=== PATIENT | male | born 1960 | race Caucasian/White ===

== ENCOUNTER → 2017-08-31 | Outpatient (CLI) | payer OTHER ==
--- NOTE | 2017-09-01 10:06 | MRI ---
STUDY: MRI OF THE LUMBAR SPINE HISTORY: Chronic low back pain. Comparison: None. Technique: Multiplanar multi-sequence MRI of the lumbar spine was performed. Sagittal T1, sagittal T 2, and STIR images, axial T1, and axial T2 images were obtained. Findings: Sagittal images: Vertebral body heights and alignment are within normal limits. There has been a discectomy with place ment of interbody cage at L4/5. Marrow signal is heterogeneous. There is multilevel degenerative disc disease and degenerative endplate change. Degenerative endplate change appears mostly chronic, altho ugh there may be some subtle mixed degenerative change at L2 and L3. The conus medullaris is normal in appearance terminating at the level of L1. Axial images: T12 -- L1: There is mild bilateral facet arthropathy and ligamentum flavum infolding. The central can al and neural foramina are adequate. L1 -- L2: There is a broad-based disc bulge, bilateral facet arthropathy and ligamentum flavum infold ing. This results in mild central canal stenosis. The neural foramina are adequate. L2 -- L3: There is a broad-based disc bulge, bilateral facet arthropathy and ligamentum flavum infold ing. This results in mild central canal stenosis. There is mild right neural foraminal stenosis. The left neural foramen is adequate. L3 -- L4: There is a broad-based disc bulge, bilateral facet arthropathy, and ligamentum flavum infol ding. This results in mild central canal stenosis. There is mild bilateral neural foraminal stenosis. L4 -- L5: There has been a discectomy with placement of interbody cage at this level. There is bilate ral facet arthropathy. The central canal is adequate. There is mild bilateral neural foraminal stenos is. L5 -- S1: There is a broad-based disc bulge with focal central disc herniation. There is bilateral fa cet arthropathy and ligamentum flavum infolding. The central canal is adequate. The herniated disc pr ojects medial to the traversing left S1 nerve root. There is severe right and moderate left neural f oraminal stenosis at this level. Note is made of a small surgical defect in the posterior lamina of S 1 on the right. IMPRESSION: 1. Multilevel lumbar spondylosis. Postsurgical changes at L4/5 and both S1. 2. Mild spinal stenosis at L1/2, L2/3, and L3/4. 3. Multilevel neural foraminal stenosis, most severe at L5/S1 on the right. Reported By:
== END ==
LOC: RAD 15:23
PROVIDERS: ATTEND Internal Medicine
DX: M54.5 Low back pain (principal); M54.16 Radiculopathy, lumbar region
CPT/HCPCS: 72148

== ENCOUNTER 2017-10-29 10:46 | Inpatient (IN) | payer OTHER ==
[2017-10-29] MEDS ORDERED: DUONEB 0.5 MG/3 MG ONE (11:30)
[2017-10-29 11:41] LABS: ABG BASE EXCESS 7.5 mmol/L (-2.0-2.0)
[2017-10-29 11:42] LABS: ABG HCO3 33.6 mmol/L (22-26)
[2017-10-29 11:43] LABS: ABG ALLEN TEST POS
[2017-10-29 12:28] VITALS: BMI 26.6
[2017-10-29 12:28] LABS: BASOPHILS # (AUTO) 0.1 X10^3/uL (0.0-0.1); BASOPHILS % (AUTO) 0.5 % (0.2-1.0); EOSINOPHILS # (AUTO) 0.1 x10^3/uL (0.0-0.2); EOSINOPHILS % (AUTO) 0.5 % (0.9-2.9); HEMATOCRIT 44.1 % (42.0-54.0); HEMOGLOBIN 15.5 g/dL (13.5-18.0); LYMPHOCYTES # (AUTO) 0.5 X10^3/uL (1.3-2.9); LYMPHOCYTES % (AUTO) 4.5 % (21.0-51.0); MEAN CORPUSCULAR HEMOGLOBIN 30.4 pg (27.0-34.0); MEAN CORPUSCULAR HGB CONC 35.2 g/dL (33.0-35.0); MEAN CORPUSCULAR VOLUME 86.4 fL (80.0-100.0); MEAN PLATELET VOLUME 8.3 fL (7.4-11.0); MONOCYTES # (AUTO) 0.7 x10^3/uL (0.3-0.8); MONOCYTES % (AUTO) 5.7 % (0.0-13.0); NEUTROPHILS # (AUTO) 10.9 x10^3/uL (2.2-4.8); NEUTROPHILS % (AUTO) 88.8 % (42.0-75.0); PLATELET COUNT 232 X10^3/uL (150.0-450.0); RED CELL DISTRIBUTION WIDTH 12.6 % (11.6-16.5); WHITE BLOOD COUNT 12.2 X10^3/uL (3.6-10.0)
[2017-10-29 12:38] LABS: ALANINE AMINOTRANSFERASE 16 Units/L (12-78); ALBUMIN 3.3 g/dL (3.4-5.0); ALKALINE PHOSPHATASE 81 Units/L (46-116); ASPARTATE AMINO TRANSFERASE 15 Units/L (15-37); BLOOD UREA NITROGEN 7 mg/dL (7-18); CHLORIDE 90 mmol/L (98-107); COR CA(FOR HYPOALB) 8.6 mg/dL (8.5-10.1); COR NA(FOR HYPERGLY) 129 mmol/L (136-145); CREATININE 0.69 mg/dL (0.70-1.30); SODIUM 128 mmol/L (136-145); TOTAL PROTEIN 7.8 g/dL (6.4-8.2); eGFR BLACK RACES > 60 (>60); eGFR NON BLACK RACES > 60 (>60)
[2017-10-29 12:51] LABS: CKMB % 1.2 % (<4); CREATINE KINASE 229 Units/L (39-308); CREATINE KINASE MB 2.8 ng/mL (0-4.0); TROPONIN I < 0.02 ng/mL (0-1.5)
[2017-10-29 12:57] LABS: BAND NEUTROPHILS % 14 % (0-10); PLATELET MORPHOLOGY COMMENT NORMAL (NORMAL)
[2017-10-29] MEDS ORDERED: NS 1/2 1000 ML IV 1,000 ML IV ONE (14:02)
[2017-10-29] MEDS: LEVAQUIN PREMIX IV 750 MG 750 MG/150 ML BAG IV SCH (14:11)
[2017-10-29] MEDS: NS 1/2 1000 ML IV 1,000 ML IV SCH (14:11)
[2017-10-29] MEDS: ROBITUSSIN DM PO SCH ×3 (14:11→21:26)
--- NOTE | 2017-10-29 15:35 | CT ---
CT CHEST WITH IV CONTRAST HISTORY: Shortness of breath Comparison: None Technique: Multiple axial images of the chest were obtained from the thoracic inlet to the upper abdo men after the administration of IV contrast.Dose reduction techniques including Automated Exposure Co ntrol (AEC) and adjustment of mA and kV were utlized. Findings: The heart is normal in size. No pericardial effusion. No suspicious mediastinal or axillary lymph no frances. Although not optimized to detect pulmonary embolism, no large central pulmonary emboli are seen. No focal consolidations, pleural effusions or pneumothorax. Moderate emphysema Airways are patent. 1. 4 cm left upper lobe nodule on series 4, image 31. Limited images of the upper abdomen are unremarkable. No aggressive osseous lesions. IMPRESSION: 1. 1.4 cm left upper lobe pulmonary nodule. Recommend correlation with prior exams if available to c onfirm stability. Otherwise, consider CT at 3 months, PET or tissue sampling. It should be noted max t adenocarcinoma of the lung is often PET-negative. [email or web address]://pubs.[email or web address]/doi/[email or web address] Reported By:
--- NOTE | 2017-10-29 15:57 | RAD ---
HISTORY: Shortness of breath. Hypoxia. Study: PA and lateral chest Comparison: None Findings: Mild hyperinflation and minimal chronic interstitial scarring is noted. There is a low-density nodul e present in the left mid lung measuring approximately 18 mm in maximum dimension. This corresponds to the abnormality seen on the CT scan from the same day. Follow-up is recommended. Otherwise the l ungs are clear. The heart size is normal. Prior cervical spine surgery been performed. Mild thorac ic spondylosis is noted. IMPRESSION: 1. Findings suggesting chronic obstructive pulmonary disease. 2. Low-density nodule in the left upper lobe. I cannot exclude the possibility of an underlying mal ignancy. 3. Please see CT scan of the chest report from the same day. Reported By:
[2017-10-29 16:06] LABS: BILIRUBIN,URINE NEGATIVE (NEGATIVE); BLOOD/HEMOGLOBIN,URINE 1+ (NEGATIVE); GLUCOSE, URINE NEGATIVE (NEGATIVE); KETONES,URINE NEGATIVE (NEGATIVE); LEUKOCYTE ESTERASE ,URINE NEGATIVE (NEGATIVE); NITRITES,URINE NEGATIVE (NEGATIVE); PROTEIN,URINE NEGATIVE (NEGATIVE); UROBILINOGEN,URINE NORMAL (NORMAL)
[2017-10-29 16:07] LABS: APPEARANCE,URINE CLEAR (CLEAR); COLOR,URINE YELLOW (YELLOW)
[2017-10-29 16:29] LABS: RBC,URINE 0-2 /HPF (NONE SEEN)
[2017-10-29 16:30] LABS: BACTERIA,URINE NEGATIVE /HPF (NEGATIVE); SQUAMOUS EPITHELIAL CELL,UR NEGATIVE /HPF (NEGATIVE)
[2017-10-29] MEDS: DUONEB 0.5 MG/3 MG NEB SCH (16:46)
[2017-10-29 17:18] LABS: CKMB % 1.2 % (<4); CREATINE KINASE 342 Units/L (39-308); TROPONIN I < 0.02 ng/mL (0-1.5)
[2017-10-29 17:36] LABS: CREATINE KINASE MB 4.2 ng/mL (0-4.0)
[2017-10-29 21:10] LABS: CKMB % 1.5 % (<4); CREATINE KINASE 352 Units/L (39-308); TROPONIN I < 0.02 ng/mL (0-1.5)
[2017-10-29 21:11] LABS: CREATINE KINASE MB 5.1 ng/mL (0-4.0)
[2017-10-29] MEDS: TUSSIONEX PENNKINETIC SUSP PO PRN (21:26)
[2017-10-30] MEDS: DUONEB 0.5 MG/3 MG NEB SCH ×6 (00:35→20:30)
[2017-10-30 01:16] LABS: CKMB % 1.4 % (<4); CREATINE KINASE 377 Units/L (39-308); TROPONIN I < 0.02 ng/mL (0-1.5)
[2017-10-30 01:19] LABS: CREATINE KINASE MB 5.3 ng/mL (0-4.0)
[2017-10-30] MEDS ORDERED: NS 1/2 1000 ML IV 1,000 ML IV ONE ×2 (04:24→19:40)
[2017-10-30] MEDS: NS 1/2 1000 ML IV 1,000 ML IV SCH ×3 (04:26→20:13)
[2017-10-30 05:17] LABS: ALANINE AMINOTRANSFERASE 17 Units/L (12-78); ALBUMIN 2.9 g/dL (3.4-5.0); ALKALINE PHOSPHATASE 75 Units/L (46-116); ASPARTATE AMINO TRANSFERASE 15 Units/L (15-37); BLOOD UREA NITROGEN 5 mg/dL (7-18); CALCIUM 8.2 mg/dL (8.5-10.1); CHLORIDE 93 mmol/L (98-107); CKMB % 1.4 % (<4); COR CA(FOR HYPOALB) 9.1 mg/dL (8.5-10.1); COR NA(FOR HYPERGLY) 133 mmol/L (136-145); CREATINE KINASE 350 Units/L (39-308); CREATININE 0.61 mg/dL (0.70-1.30); SODIUM 131 mmol/L (136-145); TOTAL PROTEIN 7.4 g/dL (6.4-8.2); TROPONIN I < 0.02 ng/mL (0-1.5); eGFR BLACK RACES > 60 (>60); eGFR NON BLACK RACES > 60 (>60)
[2017-10-30 05:26] LABS: BASOPHILS % (AUTO) 0.2 % (0.2-1.0); HEMATOCRIT 41.8 % (42.0-54.0); HEMOGLOBIN 14.8 g/dL (13.5-18.0); LYMPHOCYTES # (AUTO) 0.5 X10^3/uL (1.3-2.9); LYMPHOCYTES % (AUTO) 4.7 % (21.0-51.0); MEAN CORPUSCULAR HEMOGLOBIN 30.5 pg (27.0-34.0); MEAN CORPUSCULAR HGB CONC 35.5 g/dL (33.0-35.0); MEAN CORPUSCULAR VOLUME 85.9 fL (80.0-100.0); MEAN PLATELET VOLUME 8.4 fL (7.4-11.0); MONOCYTES # (AUTO) 0.7 x10^3/uL (0.3-0.8); MONOCYTES % (AUTO) 6.1 % (0.0-13.0); NEUTROPHILS # (AUTO) 9.7 x10^3/uL (2.2-4.8); PLATELET COUNT 234 X10^3/uL (150.0-450.0); RED BLOOD COUNT 4.86 X10^6/uL (4.7-6.0); RED CELL DISTRIBUTION WIDTH 12.5 % (11.6-16.5); WHITE BLOOD COUNT 10.9 X10^3/uL (3.6-10.0)
[2017-10-30 05:29] LABS: CREATINE KINASE MB 4.9 ng/mL (0-4.0)
[2017-10-30 06:09] LABS: ABG BASE EXCESS 9.5 mmol/L (-2.0-2.0)
[2017-10-30 06:10] LABS: ABG HCO3 34.8 mmol/L (22-26)
[2017-10-30 08:36] LABS: CKMB % 1.3 % (<4); CREATINE KINASE 353 Units/L (39-308); TROPONIN I < 0.02 ng/mL (0-1.5)
[2017-10-30 08:42] LABS: CREATINE KINASE MB 4.7 ng/mL (0-4.0)
[2017-10-30] MEDS: PULMICORT NEB TX 0.5 MG NEB SCH ×2 (08:45→20:31)
[2017-10-30] MEDS: ROBITUSSIN DM PO SCH ×4 (10:46→22:37)
[2017-10-30] MEDS: SOLU-Medrol 40 MG VIAL IVP SCH ×3 (10:46→22:39)
[2017-10-30] MEDS: LEVAQUIN PREMIX IV 750 MG 750 MG/150 ML BAG IV SCH (10:46)
[2017-10-30] MEDS: NORVASC TAB 5 MG PO SCH (10:47)
[2017-10-30] MEDS: LIPITOR TAB 40 MG PO SCH (10:47)
[2017-10-30] MEDS: THEO-DUR TAB 200 MG PO SCH ×2 (10:47→22:38)
[2017-10-30] MEDS: NICOTINE PATCH TD SCH (10:51)
[2017-10-30] MEDS: PATIENT'S HOME MEDICATION PO SCH (10:53)
[2017-10-30] MEDS: FOSINOPRIL SODIUM 20 MG PO SCH (10:55)
[2017-10-30 12:40] LABS: CKMB % 1.4 % (<4); CREATINE KINASE 345 Units/L (39-308); TROPONIN I < 0.02 ng/mL (0-1.5)
[2017-10-30 12:49] LABS: CREATINE KINASE MB 4.7 ng/mL (0-4.0)
[2017-10-30 15:54] LABS: ABG BASE EXCESS 10.8 mmol/L (-2.0-2.0)
[2017-10-30 15:55] LABS: ABG ALLEN TEST POS; ABG HCO3 36.3 mmol/L (22-26)
[2017-10-30] MEDS: LOVENOX INJ 30 MG SYR SC SCH (16:19)
[2017-10-30] MEDS: FOSINOPRIL SODIUM 10 MG PO SCH (22:44)
[2017-10-31] MEDS: DUONEB 0.5 MG/3 MG NEB SCH ×6 (00:35→20:38)
[2017-10-31] MEDS: SOLU-Medrol 40 MG VIAL IVP SCH ×3 (06:04→21:46)
[2017-10-31 06:33] LABS: BASOPHILS % (AUTO) 0.1 % (0.2-1.0); HEMATOCRIT 42.5 % (42.0-54.0); HEMOGLOBIN 14.7 g/dL (13.5-18.0); LYMPHOCYTES # (AUTO) 0.6 X10^3/uL (1.3-2.9); LYMPHOCYTES % (AUTO) 4.6 % (21.0-51.0); MEAN CORPUSCULAR HEMOGLOBIN 29.9 pg (27.0-34.0); MEAN CORPUSCULAR HGB CONC 34.7 g/dL (33.0-35.0); MEAN CORPUSCULAR VOLUME 86.3 fL (80.0-100.0); MEAN PLATELET VOLUME 8.2 fL (7.4-11.0); MONOCYTES # (AUTO) 0.8 x10^3/uL (0.3-0.8); MONOCYTES % (AUTO) 6.3 % (0.0-13.0); NEUTROPHILS # (AUTO) 11.7 x10^3/uL (2.2-4.8); PLATELET COUNT 256 X10^3/uL (150.0-450.0); RED BLOOD COUNT 4.92 X10^6/uL (4.7-6.0); RED CELL DISTRIBUTION WIDTH 12.4 % (11.6-16.5); WHITE BLOOD COUNT 13.2 X10^3/uL (3.6-10.0)
[2017-10-31 06:48] LABS: BLOOD UREA NITROGEN 8 mg/dL (7-18); CARBON DIOXIDE 33.4 mmol/L (21-32); CHLORIDE 95 mmol/L (98-107); COR NA(FOR HYPERGLY) 137 mmol/L (136-145); CREATININE 0.64 mg/dL (0.70-1.30); SODIUM 136 mmol/L (136-145); eGFR BLACK RACES > 60 (>60); eGFR NON BLACK RACES > 60 (>60)
[2017-10-31 06:49] LABS: ALANINE AMINOTRANSFERASE 23 Units/L (12-78); ALBUMIN 2.8 g/dL (3.4-5.0); ALKALINE PHOSPHATASE 74 Units/L (46-116); ASPARTATE AMINO TRANSFERASE 18 Units/L (15-37); TOTAL PROTEIN 6.8 g/dL (6.4-8.2)
[2017-10-31] MEDS: PULMICORT NEB TX 0.5 MG NEB SCH ×2 (09:08→20:38)
[2017-10-31] MEDS ORDERED: NS 1/2 1000 ML IV 1,000 ML IV ONE (09:15)
[2017-10-31] MEDS: NS 1/2 1000 ML IV 1,000 ML IV SCH (09:35)
[2017-10-31] MEDS: LEVAQUIN PREMIX IV 750 MG 750 MG/150 ML BAG IV SCH (09:36)
[2017-10-31] MEDS: LOVENOX INJ 30 MG SYR SC SCH (09:37)
[2017-10-31] MEDS: LIPITOR TAB 40 MG PO SCH (09:37)
[2017-10-31] MEDS: NICOTINE PATCH TD SCH (09:38)
[2017-10-31] MEDS: THEO-DUR TAB 200 MG PO SCH ×2 (09:38→21:45)
[2017-10-31] MEDS: ROBITUSSIN DM PO SCH ×4 (09:38→21:46)
[2017-10-31] MEDS: NORVASC TAB 5 MG PO SCH (09:39)
[2017-10-31] MEDS: PATIENT'S HOME MEDICATION PO SCH (09:40)
[2017-10-31] MEDS: FOSINOPRIL SODIUM 20 MG PO SCH (09:40)
[2017-10-31] MEDS: TUSSIONEX PENNKINETIC SUSP PO PRN (21:46)
[2017-10-31] MEDS: FOSINOPRIL SODIUM 10 MG PO SCH (21:48)
[2017-10-31] MEDS: RESTORIL CAP 15 MG PO PRN (21:52)
[2017-11-01] MEDS: DUONEB 0.5 MG/3 MG NEB SCH ×6 (00:40→21:51)
[2017-11-01] MEDS ORDERED: NS 1/2 1000 ML IV 1,000 ML IV ONE ×2 (00:59→17:55)
[2017-11-01] MEDS: NS 1/2 1000 ML IV 1,000 ML IV SCH ×4 (01:08→18:15)
[2017-11-01 04:45] LABS: ABG BASE EXCESS 10.4 mmol/L (-2.0-2.0)
[2017-11-01 04:46] LABS: ABG ALLEN TEST POS; ABG HCO3 36.1 mmol/L (22-26); FRACTIONATED INSPIRED OXYGEN 28
[2017-11-01] MEDS: SOLU-Medrol 40 MG VIAL IVP SCH ×3 (05:29→21:44)
[2017-11-01 06:21] LABS: BASOPHILS % (AUTO) 0.1 % (0.2-1.0); HEMATOCRIT 46.8 % (42.0-54.0); HEMOGLOBIN 16.2 g/dL (13.5-18.0); LYMPHOCYTES # (AUTO) 1.2 X10^3/uL (1.3-2.9); LYMPHOCYTES % (AUTO) 5.5 % (21.0-51.0); MEAN CORPUSCULAR HEMOGLOBIN 30.3 pg (27.0-34.0); MEAN CORPUSCULAR HGB CONC 34.7 g/dL (33.0-35.0); MEAN CORPUSCULAR VOLUME 87.3 fL (80.0-100.0); MEAN PLATELET VOLUME 7.7 fL (7.4-11.0); MONOCYTES # (AUTO) 1.4 x10^3/uL (0.3-0.8); MONOCYTES % (AUTO) 6.6 % (0.0-13.0); NEUTROPHILS # (AUTO) 19.3 x10^3/uL (2.2-4.8); NEUTROPHILS % (AUTO) 87.8 % (42.0-75.0); PLATELET COUNT 316 X10^3/uL (150.0-450.0); RED BLOOD COUNT 5.36 X10^6/uL (4.7-6.0); RED CELL DISTRIBUTION WIDTH 12.9 % (11.6-16.5)
[2017-11-01] MEDS ORDERED: POTASSIUM CHL 60 MEQ/NS 0.45% 500 ML IV PRN (06:26)
[2017-11-01] MEDS ORDERED: MAGNESIUM SULFATE 1 GM/100 mL PREMIX 1 GM/100 ML BAG IV PRN (06:26)
[2017-11-01] MEDS ORDERED: K-RIDER 10 MEQ/NS 100 ML 10 MEQ/100 ML BAG IV PRN (06:26)
[2017-11-01] MEDS ORDERED: POTASSIUM CHL 40 MEQ/NS 0.45% 500 ML IV PRN (06:26)
[2017-11-01] MEDS ORDERED: POTASSIUM CHLORIDE LIQ 20 MEQ UDC PO PRN (06:26)
[2017-11-01] MEDS ORDERED: K-LYTE EFFERVESCENT PO PRN (06:26)
--- NOTE | 2017-11-01 07:05 | RAD ---
HISTORY: Shortness of breath Study: Single-view chest Comparison: 10/29/2017 Findings: The trachea is midline. The cardiac silhouette is unremarkable. The previously described nodule wit hin the mid peripheral left lung is barely perceptible on current exam. There is no acute infiltrate , consolidation, or pleural effusion. The bony thorax is grossly intact. IMPRESSION: 1. No acute cardiopulmonary disease. Reported By:
[2017-11-01 08:12] LABS: BAND NEUTROPHILS % 2 % (0-10); PLATELET MORPHOLOGY COMMENT NORMAL (NORMAL)
[2017-11-01] MEDS: LOVENOX INJ 30 MG SYR SC SCH (08:43)
[2017-11-01] MEDS: NORVASC TAB 5 MG PO SCH (08:44)
[2017-11-01] MEDS: THEO-DUR TAB 200 MG PO SCH ×2 (08:44→21:43)
[2017-11-01] MEDS: LIPITOR TAB 40 MG PO SCH (08:44)
[2017-11-01] MEDS: NICOTINE PATCH TD SCH (08:46)
[2017-11-01] MEDS: FOSINOPRIL SODIUM 20 MG PO SCH (08:46)
[2017-11-01] MEDS: TUSSIONEX PENNKINETIC SUSP PO PRN (08:47)
[2017-11-01] MEDS: LEVAQUIN PREMIX IV 750 MG 750 MG/150 ML BAG IV SCH (08:47)
[2017-11-01] MEDS: PATIENT'S HOME MEDICATION PO SCH (08:49)
[2017-11-01] MEDS: ROBITUSSIN DM PO SCH ×4 (08:50→21:43)
[2017-11-01] MEDS: ROXICODONE TAB 5 MG PO PRN ×3 (08:55→19:35)
[2017-11-01] MEDS: PULMICORT NEB TX 0.5 MG NEB SCH ×2 (09:10→21:51)
[2017-11-01] MEDS: MAALOX or MYLANTA PO PRN ×2 (11:42→21:44)
[2017-11-01] MEDS: RESTORIL CAP 15 MG PO PRN (19:35)
[2017-11-01] MEDS: FOSINOPRIL SODIUM 10 MG PO SCH (21:43)
--- NOTE | 2017-11-01 22:18 | DR.UPDATE ---
H&P Update History and Physical Update: WAS SEEN IN THE OFFICE TODAY. A H&P UPDATE WAS COMPLETED PRIOR TO ADMISSION. PATIENT HAS BEEN SEEN AND EXAMINED WITH NO CHANGES NOTED TO H&P. Changes noted: NO Yes with the following:
--- NOTE | 2017-11-01 22:38 | PCM.PROG ---
Progress Note - Progress Note for Day of Date: 10/30/17 - Subjective Subjective: WAS ADMITTED FOR BRONCHOPNEUMONIA AND SHORTNESS OF BREATH. PATIENT HAS A HISTORY OF COPD. TODAY, HE IS LYING IN BED WITH EYES CLOSED ON MORNING ROUNDS. HE AWAKENS TO VERBAL STIMULI. HE CONTINUES WITH SHORTNESS OF BREATH AND A PRODUCTIVE COUGH. HIS VITALS TODAY ARE 97.9-40-89-20-97%-146/75. LABS WERE OBTAINED. ABNORMAL LAB VALUES INCLUDE THE FOLLOWING: WBC 10.9, HCT 41.8, SODIUM 131, CHLORIDE 93, CARBON DIOXICE 33.0, BUN 5, CREATININE 0.61, GLUCOSE 165, CALCIUM 8.2, CREATININE 350, CK-MB 4.9, ALBUMIN 2.9. TODAYS ABG REVEALED PH 7.460, PC02 49, P02 55, HC03 34.8, BASE EXCESS 9.5. A CHEST CT WAS OBTAINED ON ADMISSION AND REVELED 1.4CM LEFT UPPER LOBE PULMONARY NODULE. RECOMMENT CORRELATION WITH PRIOR EXAMS IF AVAILABLE TO CONFIRM STABLILITY. OTHERWISE, CONSIDER CT AT 3 MONTH OR TISSUE SAMPLING. TODAY, WE WILL START THEODUR 200MG PO BID, A NICOTINE PATCH, AND PULMICORT NEB TREATMENTS. OTHERWISE , WE WILL CONTINUE WITH CURRENT PLAN OF CARE AND CONTINUE TO MONITOR PATIENT. - Past Medical Family Social History Past Med/Fam/Surg Hx: No changes since H&P Allergies: Allergies Penicillins Allergy (Verified 10/29/17 12:46) - Review of Systems ROS: No change since H&P - Vital Signs and I&O's Vital Signs: Temperature 98.1 F Pulse Rate [Right Brachial] 103 Pulse Rate 86 Respiratory Rate 20 Blood Pressure [Right Arm] 108/69 O2 Sat by Pulse Oximetry 94 Intake and Output: Intake & Output 10/30/17 10/31/17 11/01/17 11/02/17 11:59 11:59 11:59 11:59 Intake Total 4110 2270 4600 1000 Output Total 875 2600 Balance 3235 2270 2000 1000 - Physical Exam Oriented: Normal Eyes: Normal Ear: Normal Nose: Normal Respiratory: Generalized, Wheezes, Rhonchi Cardiovascular: Normal : Normal Auscultation: Bowel Sounds: Normal Palpation: Normal Tenderness: Normal Skin: Normal Musculoskeletal: Normal Psychiatric: Normal Mood Description: Calm Affect: Normal Speech Pattern: Clear, Appropriate - Laboratory and Diagnostics Result Diagrams: 11/01/17 05:03 11/01/17 19:00 Labs: 10/29/17 11:35 Sputum - Expectorated Sputum Sputum Culture - Final 10/29/17 11:35 Sputum - Expectorated Sputum - Final 10/29/17 12:15 Blood Blood Culture - Preliminary 10/29/17 12:06 Blood Blood Culture - Preliminary Laboratory WBC 22.0 X10^3/uL (3.6-10.0) H D 11/01/17 05:03 RBC 5.36 X10^6/uL (4.7-6.0) 11/01/17 05:03 Hgb 16.2 g/dL (13.5-18.0) 11/01/17 05:03 Hct 46.8 % (42.0-54.0) 11/01/17 05:03 MCV 87.3 fL (80.0-100.0) 11/01/17 05:03 MCH 30.3 pg (27.0-34.0) 11/01/17 05:03 MCHC 34.7 g/dL (33.0-35.0) 11/01/17 05:03 RDW 12.9 % (11.6-16.5) 11/01/17 05:03 Plt Count 316 X10^3/uL (150.0-450.0) 11/01/17 05:03 Plt Count Comment Adequate (ADEQUATE) 11/01/17 05:03 MPV 7.7 fL (7.4-11.0) 11/01/17 05:03 Neut % (Auto) 87.8 % (42.0-75.0) H 11/01/17 05:03 Lymph % (Auto) 5.5 % (21.0-51.0) L 11/01/17 05:03 [place] % (Auto) 6.6 % (0.0-13.0) 11/01/17 05:03 Eos % (Auto) 0.0 % (0.9-2.9) L 11/01/17 05:03 Baso % (Auto) 0.1 % (0.2-1.0) L 11/01/17 05:03 Neut # (Auto) 19.3 x10^3/uL (2.2-4.8) H 11/01/17 05:03 Lymph # (Auto) 1.2 X10^3/uL (1.3-2.9) L 11/01/17 05:03 [place] # (Auto) 1.4 x10^3/uL (0.3-0.8) H 11/01/17 05:03 Eos # (Auto) 0.0 x10^3/uL (0.0-0.2) 11/01/17 05:03 Baso # (Auto) 0.0 X10^3/uL (0.0-0.1) 11/01/17 05:03 Absolute Nucleated RBC 0.1 /100WBC 11/01/17 05:03 Total Counted 100 11/01/17 05:03 Neutrophils % (Manual) 90 % (39-76) H 11/01/17 05:03 Band Neutrophils % 2 % (0-10) 11/01/17 05:03 Lymphocytes % (Manual) 4 % (13-43) L 11/01/17 05:03 Monocytes % (Manual) 4 % (4-9) 11/01/17 05:03 Plt Morphology Comment Normal (NORMAL) 11/01/17 05:03 RBC Morphology Normal (NORMAL) 11/01/17 05:03 Sample Site Lr 11/01/17 04:35 ABG pH 7.450 (7.35-7.45) 11/01/17 04:35 ABG pCO2 52.0 mmHg (35.0-45.0) H* 11/01/17 04:35 ABG pO2 59.0 mmHg (80.0-100.0) L 11/01/17 04:35 ABG HCO3 36.1 mmol/L (22-26) H* 11/01/17 04:35 ABG O2 Saturation 91.0 % (90-100) 11/01/17 04:35 ABG Base Excess 10.4 mmol/L (-2.0-2.0) H 11/01/17 04:35 Sotero Test Pos 11/01/17 04:35 A-a Gradient 76.0 mmHg 11/01/17 04:35 FiO2 28 11/01/17 04:35 Blood Gas Comments Monica well ae 11/01/17 04:35 Sodium 136 mmol/L (136-145) 10/31/17 04:58 Corrected Sodium 137 mmol/L (136-145) 10/31/17 04:58 Potassium 3.9 mmol/L (3.5-5.1) 11/01/17 19:00 Chloride 95 mmol/L (98-107) L 10/31/17 04:58 Carbon Dioxide 33.4 mmol/L (21-32) H 10/31/17 04:58 BUN 8 mg/dL (7-18) 10/31/17 04:58 Creatinine 0.64 mg/dL (0.70-1.30) L 10/31/17 04:58 Est GFR (MDRD) Af Amer > 60 (>60) 10/31/17 04:58 Est GFR (MDRD) Non-Af > 60 (>60) 10/31/17 04:58 Glucose 155 mg/dL (65-99) H 10/31/17 04:58 Calcium 8.0 mg/dL (8.5-10.1) L 10/31/17 04:58 Corrected Calcium 9.0 mg/dL (8.5-10.1) 10/31/17 04:58 Magnesium 2.1 mg/dL (1.7-2.9) 11/01/17 05:03 Total Bilirubin 0.30 mg/dL (0.2-1.0) 10/31/17 04:58 AST 18 Units/L (15-37) 10/31/17 04:58 ALT 23 Units/L (12-78) 10/31/17 04:58 Alkaline Phosphatase 74 Units/L (46-116) 10/31/17 04:58 Creatine Kinase 345 Units/L (39-308) H 10/30/17 11:50 CK-MB (CK-2) 4.7 ng/mL (0-4.0) H* 10/30/17 11:50 CK/CKMB % Calc 1.4 % (<4) 10/30/17 11:50 Troponin I < 0.02 ng/mL (0-1.5) 10/30/17 11:50 Total Protein 6.8 g/dL (6.4-8.2) 10/31/17 04:58 Albumin 2.8 g/dL (3.4-5.0) L 10/31/17 04:58 Globulin 4.0 g/dL (2.5-4.5) 10/31/17 04:58 Albumin/Globulin Ratio 0.7 Ratio (1.1-2.1) L 10/31/17 04:58 Specimen Type Clean catch urine 10/29/17 15:58 Urine Color Yellow (YELLOW) 10/29/17 15:58 Urine Appearance Clear (CLEAR) 10/29/17 15:58 Urine pH 7.0 (5.0 - 8.0) 10/29/17 15:58 Ur Specific [place] 1.005 (1.000-1.030) 10/29/17 15:58 Urine Protein Negative (NEGATIVE) 10/29/17 15:58 Urine Glucose (UA) Negative (NEGATIVE) 10/29/17 15:58 Urine Ketones Negative (NEGATIVE) 10/29/17 15:58 Urine Occult Blood 1+ (NEGATIVE) 10/29/17 15:58 Urine Nitrite Negative (NEGATIVE) 10/29/17 15:58 Urine Bilirubin Negative (NEGATIVE) 10/29/17 15:58 Urine Urobilinogen Normal (NORMAL) 10/29/17 15:58 Ur Leukocyte Esterase Negative (NEGATIVE) 10/29/17 15:58 Urine RBC 0-2 /HPF (NONE SEEN) 10/29/17 15:58 Urine WBC None seen /HPF (NONE SEEN) 10/29/17 15:58 Ur Squamous Epith Cells Negative /HPF (NEGATIVE) 10/29/17 15:58 Urine Bacteria Negative /HPF (NEGATIVE) 10/29/17 15:58 Ur Culture Indicated? No/not indicated 10/29/17 15:58 - Plan (1) Bronchopneumonia Status: Acute Plan: PNEUMONIA PROTOCOL, RESPIRATORY TREATMENTS, SUPPLEMENTAL OXYGEN, CONTINUE TO MONITOR (2) COPD (chronic obstructive pulmonary disease) Status: Acute Qualifiers: COPD type: unspecified COPD Qualified Code(s): J44.9 - Chronic obstructive pulmonary disease, unspecified Plan: NICOL-DUR 200MG PO BID, RESPIRATORY TREATMENTS, SUPPLEMENTAL OXYGEN, CONTINUE TO MONITOR
[2017-11-02] MEDS: DUONEB 0.5 MG/3 MG NEB SCH ×4 (00:51→13:00)
[2017-11-02] MEDS: NS 1/2 1000 ML IV 1,000 ML IV SCH ×2 (01:41→14:13)
[2017-11-02] MEDS: SOLU-Medrol 40 MG VIAL IVP SCH (05:44)
[2017-11-02] MEDS: ROXICODONE TAB 5 MG PO PRN ×2 (05:45→09:54)
[2017-11-02 06:12] LABS: BASOPHILS % (AUTO) 0.1 % (0.2-1.0); EOSINOPHILS % (AUTO) 0.1 % (0.9-2.9); HEMATOCRIT 43.1 % (42.0-54.0); HEMOGLOBIN 14.9 g/dL (13.5-18.0); LYMPHOCYTES # (AUTO) 0.8 X10^3/uL (1.3-2.9); MEAN CORPUSCULAR HEMOGLOBIN 30.2 pg (27.0-34.0); MEAN CORPUSCULAR HGB CONC 34.5 g/dL (33.0-35.0); MEAN CORPUSCULAR VOLUME 87.3 fL (80.0-100.0); MEAN PLATELET VOLUME 7.6 fL (7.4-11.0); MONOCYTES # (AUTO) 0.8 x10^3/uL (0.3-0.8); MONOCYTES % (AUTO) 3.8 % (0.0-13.0); NEUTROPHILS # (AUTO) 18.5 x10^3/uL (2.2-4.8); PLATELET COUNT 253 X10^3/uL (150.0-450.0); RED BLOOD COUNT 4.93 X10^6/uL (4.7-6.0); RED CELL DISTRIBUTION WIDTH 12.7 % (11.6-16.5); WHITE BLOOD COUNT 20.1 X10^3/uL (3.6-10.0)
[2017-11-02 06:29] LABS: ALANINE AMINOTRANSFERASE 29 Units/L (12-78); ALBUMIN 2.7 g/dL (3.4-5.0); ALKALINE PHOSPHATASE 65 Units/L (46-116); ASPARTATE AMINO TRANSFERASE 13 Units/L (15-37); BLOOD UREA NITROGEN 13 mg/dL (7-18); CALCIUM 7.7 mg/dL (8.5-10.1); CARBON DIOXIDE 32.7 mmol/L (21-32); CHLORIDE 99 mmol/L (98-107); COR CA(FOR HYPOALB) 8.7 mg/dL (8.5-10.1); COR NA(FOR HYPERGLY) 138 mmol/L (136-145); SODIUM 136 mmol/L (136-145); TOTAL PROTEIN 6.2 g/dL (6.4-8.2); eGFR BLACK RACES > 60 (>60); eGFR NON BLACK RACES > 60 (>60)
[2017-11-02 06:52] LABS: BAND NEUTROPHILS % 5 % (0-10); PLATELET MORPHOLOGY COMMENT NORMAL (NORMAL)
[2017-11-02] MEDS: LIPITOR TAB 40 MG PO SCH (08:53)
[2017-11-02] MEDS: LEVAQUIN PREMIX IV 750 MG 750 MG/150 ML BAG IV SCH (08:53)
[2017-11-02] MEDS: FOSINOPRIL SODIUM 20 MG PO SCH (08:53)
[2017-11-02] MEDS: LOVENOX INJ 30 MG SYR SC SCH (08:53)
[2017-11-02] MEDS: PATIENT'S HOME MEDICATION PO SCH (08:54)
[2017-11-02] MEDS: NICOTINE PATCH TD SCH (08:54)
[2017-11-02] MEDS: ROBITUSSIN DM PO SCH ×2 (08:54→14:13)
[2017-11-02] MEDS: THEO-DUR TAB 200 MG PO SCH (08:54)
[2017-11-02] MEDS: NORVASC TAB 5 MG PO SCH (08:54)
[2017-11-02] MEDS: PULMICORT NEB TX 0.5 MG NEB SCH (08:56)
[2017-11-02 09:09] LABS: ABG BASE EXCESS 7.3 mmol/L (-2.0-2.0)
[2017-11-02 09:10] LABS: ABG HCO3 33.1 mmol/L (22-26)
[2017-11-02] MEDS: MAALOX or MYLANTA PO PRN (11:16)
--- NOTE | 2017-11-02 11:33 | PCM.PROG ---
Progress Note - Progress Note for Day of Date: 10/31/17 - Subjective Subjective: WAS ADMITTED FOR BRONCHOPNEUMONIA AND SHORTNESS OF BREATH. PATIENT HAS A HISTORY OF COPD. TODAY, HE IS LYING IN BED WITH EYES CLOSED ON MORNING ROUNDS. HE AWAKENS TO VERBAL STIMULI. HE CONTINUES WITH MODERATE SHORTNESS OF BREATH AND A PRODUCTIVE COUGH. STAFF REPORTS THAT PATIENTS OXYGEN SATURATIONS HAVE FALLEN BELOW 90% ON OXYGEN VIA NASAL CANNULA SEVERAL TIMES. HIS VITALS TODAY ARE 97.9-86-20-86% NC-131/70. LABS WERE OBTAINED. ABNORMAL LAB VALUES INCLUDE THE FOLLOWING: WBC INCREASED FROM 10.9 TO 13.2, POTASSIUM 3.2, CHLORIDE 95, CARBON DIOXIDE 33.4, CREATININE 0.64, GLUCOSE 155, CALCIUM 8.0, ALBUMIN 2.8. BLOOD AND SPUTUM CULTURES ARE PENDING. PATIENT REQUIRES HOME OXYGEN DUE TO ACUTE ON CHRONIC RESPIRATORY FAILURE WITH HYPERCAPNIA. TODAY, WE WILL CONTINUE WITH IV ANTIBIOTICS, RESPIATORY TREATMENTS, AND SUPPLEMENTAL OXYGEN. OTHERWISE, WE WILL FOLLOW UP WITH AM LABS, CHEST XRAY, ABG AND CONTINUE TO MONITOR PATIENT. - Past Medical Family Social History Past Med/Fam/Surg Hx: No changes since H&P Allergies: Allergies Penicillins Allergy (Verified 10/29/17 12:46) - Review of Systems ROS: No change since H&P - Vital Signs and I&O's Vital Signs: Temperature 97.3 F Pulse Rate [Right Brachial] 105 Pulse Rate 87 Respiratory Rate 18 Blood Pressure [Right Arm] 116/75 O2 Sat by Pulse Oximetry 90 Intake and Output: Intake & Output 10/30/17 10/31/17 11/01/17 11/02/17 11:59 11:59 11:59 11:59 Intake Total 4110 2270 4600 2815 Output Total 875 2600 Balance 3235 2270 2000 2815 - Physical Exam Oriented: Normal Eyes: Normal Ear: Normal Nose: Normal Respiratory: Generalized, Wheezes, Rhonchi Cardiovascular: Normal : Normal Auscultation: Bowel Sounds: Normal Palpation: Normal Tenderness: Normal Skin: Normal Musculoskeletal: Normal Psychiatric: Normal Mood Description: Calm Affect: Normal Speech Pattern: Clear, Appropriate - Laboratory and Diagnostics Result Diagrams: 11/02/17 05:04 11/02/17 05:04 Labs: 10/29/17 11:35 Sputum - Expectorated Sputum Sputum Culture - Final 10/29/17 11:35 Sputum - Expectorated Sputum - Final 10/29/17 12:15 Blood Blood Culture - Preliminary 10/29/17 12:06 Blood Blood Culture - Preliminary Laboratory WBC 20.1 X10^3/uL (3.6-10.0) H 11/02/17 05:04 RBC 4.93 X10^6/uL (4.7-6.0) 11/02/17 05:04 Hgb 14.9 g/dL (13.5-18.0) 11/02/17 05:04 Hct 43.1 % (42.0-54.0) 11/02/17 05:04 MCV 87.3 fL (80.0-100.0) 11/02/17 05:04 MCH 30.2 pg (27.0-34.0) 11/02/17 05:04 MCHC 34.5 g/dL (33.0-35.0) 11/02/17 05:04 RDW 12.7 % (11.6-16.5) 11/02/17 05:04 Plt Count 253 X10^3/uL (150.0-450.0) 11/02/17 05:04 Plt Count Comment Adequate (ADEQUATE) 11/02/17 05:04 MPV 7.6 fL (7.4-11.0) 11/02/17 05:04 Neut % (Auto) 92.0 % (42.0-75.0) H 11/02/17 05:04 Lymph % (Auto) 4.0 % (21.0-51.0) L 11/02/17 05:04 [place] % (Auto) 3.8 % (0.0-13.0) 11/02/17 05:04 Eos % (Auto) 0.1 % (0.9-2.9) L 11/02/17 05:04 Baso % (Auto) 0.1 % (0.2-1.0) L 11/02/17 05:04 Neut # (Auto) 18.5 x10^3/uL (2.2-4.8) H 11/02/17 05:04 Lymph # (Auto) 0.8 X10^3/uL (1.3-2.9) L 11/02/17 05:04 [place] # (Auto) 0.8 x10^3/uL (0.3-0.8) 11/02/17 05:04 Eos # (Auto) 0.0 x10^3/uL (0.0-0.2) 11/02/17 05:04 Baso # (Auto) 0.0 X10^3/uL (0.0-0.1) 11/02/17 05:04 Absolute Nucleated RBC 0.1 /100WBC 11/02/17 05:04 Total Counted 100 11/02/17 05:04 Neutrophils % (Manual) 85 % (39-76) H 11/02/17 05:04 Band Neutrophils % 5 % (0-10) 11/02/17 05:04 Lymphocytes % (Manual) 6 % (13-43) L 11/02/17 05:04 Monocytes % (Manual) 4 % (4-9) 11/02/17 05:04 Plt Morphology Comment Normal (NORMAL) 11/02/17 05:04 RBC Morphology Normal (NORMAL) 11/02/17 05:04 Sample Site Right brachial 11/02/17 08:58 ABG pH 7.420 (7.35-7.45) 11/02/17 08:58 ABG pCO2 51.0 mmHg (35.0-45.0) H* 11/02/17 08:58 ABG pO2 55.0 mmHg (80.0-100.0) L 11/02/17 08:58 ABG HCO3 33.1 mmol/L (22-26) H* 11/02/17 08:58 ABG O2 Saturation 89.0 % (90-100) L 11/02/17 08:58 ABG Base Excess 7.3 mmol/L (-2.0-2.0) H 11/02/17 08:58 Sotero Test Na 11/02/17 08:58 A-a Gradient 31.0 mmHg 11/02/17 08:58 FiO2 21.000 11/02/17 08:58 Blood Gas Comments Monica well aw 11/02/17 08:58 Sodium 136 mmol/L (136-145) 11/02/17 05:04 Corrected Sodium 138 mmol/L (136-145) 11/02/17 05:04 Potassium 4.3 mmol/L (3.5-5.1) 11/02/17 05:04 Chloride 99 mmol/L (98-107) 11/02/17 05:04 Carbon Dioxide 32.7 mmol/L (21-32) H 11/02/17 05:04 BUN 13 mg/dL (7-18) 11/02/17 05:04 Creatinine 0.80 mg/dL (0.70-1.30) 11/02/17 05:04 Est GFR (MDRD) Af Amer > 60 (>60) 11/02/17 05:04 Est GFR (MDRD) Non-Af > 60 (>60) 11/02/17 05:04 Glucose 201 mg/dL (65-99) H 11/02/17 05:04 Calcium 7.7 mg/dL (8.5-10.1) L 11/02/17 05:04 Corrected Calcium 8.7 mg/dL (8.5-10.1) 11/02/17 05:04 Magnesium 2.1 mg/dL (1.7-2.9) 11/01/17 05:03 Total Bilirubin 0.20 mg/dL (0.2-1.0) 11/02/17 05:04 AST 13 Units/L (15-37) L 11/02/17 05:04 ALT 29 Units/L (12-78) 11/02/17 05:04 Alkaline Phosphatase 65 Units/L (46-116) 11/02/17 05:04 Creatine Kinase 345 Units/L (39-308) H 10/30/17 11:50 CK-MB (CK-2) 4.7 ng/mL (0-4.0) H* 10/30/17 11:50 CK/CKMB % Calc 1.4 % (<4) 10/30/17 11:50 Troponin I < 0.02 ng/mL (0-1.5) 10/30/17 11:50 Total Protein 6.2 g/dL (6.4-8.2) L 11/02/17 05:04 Albumin 2.7 g/dL (3.4-5.0) L 11/02/17 05:04 Globulin 3.5 g/dL (2.5-4.5) 11/02/17 05:04 Albumin/Globulin Ratio 0.8 Ratio (1.1-2.1) L 11/02/17 05:04 Specimen Type Clean catch urine 10/29/17 15:58 Urine Color Yellow (YELLOW) 10/29/17 15:58 Urine Appearance Clear (CLEAR) 10/29/17 15:58 Urine pH 7.0 (5.0 - 8.0) 10/29/17 15:58 Ur Specific [place] 1.005 (1.000-1.030) 10/29/17 15:58 Urine Protein Negative (NEGATIVE) 10/29/17 15:58 Urine Glucose (UA) Negative (NEGATIVE) 10/29/17 15:58 Urine Ketones Negative (NEGATIVE) 10/29/17 15:58 Urine Occult Blood 1+ (NEGATIVE) 10/29/17 15:58 Urine Nitrite Negative (NEGATIVE) 10/29/17 15:58 Urine Bilirubin Negative (NEGATIVE) 10/29/17 15:58 Urine Urobilinogen Normal (NORMAL) 10/29/17 15:58 Ur Leukocyte Esterase Negative (NEGATIVE) 10/29/17 15:58 Urine RBC 0-2 /HPF (NONE SEEN) 10/29/17 15:58 Urine WBC None seen /HPF (NONE SEEN) 10/29/17 15:58 Ur Squamous Epith Cells Negative /HPF (NEGATIVE) 10/29/17 15:58 Urine Bacteria Negative /HPF (NEGATIVE) 10/29/17 15:58 Ur Culture Indicated? No/not indicated 10/29/17 15:58 - Plan (1) Bronchopneumonia Status: Acute Plan: PNEUMONIA PROTOCOL, RESPIRATORY TREATMENTS, SUPPLEMENTAL OXYGEN, CONTINUE TO MONITOR (2) COPD (chronic obstructive pulmonary disease) Status: Acute Qualifiers: COPD type: unspecified COPD Qualified Code(s): J44.9 - Chronic obstructive pulmonary disease, unspecified Plan: NICOL-DUR 200MG PO BID, RESPIRATORY TREATMENTS, SUPPLEMENTAL OXYGEN, CONTINUE TO MONITOR (3) Respiratory failure with hypoxia and hypercapnia Status: Acute Qualifiers: Chronicity: acute on chronic Qualified Code(s): J96.21 - Acute and chronic respiratory failure with hypoxia; J96.22 - Acute and chronic respiratory failure with hypercapnia; J96.22 - Acute and chronic respiratory failure with hypercapnia; J96.22 - Acute and chronic respiratory failure with hypercapnia Plan: SUPPLEMENTAL OXYGEN, RESPIATORY TREATMENTS, CONTINUE TO MONITOR
--- NOTE | 2017-11-02 11:40 | PCM.PROG ---
Progress Note - Progress Note for Day of Date: 11/01/17 - Subjective Subjective: IS BEING TREATED FOR BRONCHOPNEUMONIA, COPD, AND RESPIRATORY FAILURE WITH HYPERCAPNIA. TODAY, HE IS ALERT AND ORIENTED, LYING IN BED ON MORNING ROUNDS. HE CONTINUES WITH SHORTNESS OF BREATH AND A PRODUCTIVE COUGH. HE CONTINUES WITH SCATTERED WHEEZING AND RHONCHI IN BILATERAL LUNG ROSS. HIS VITALS TODAY ARE 97.6-94-20-93%-130/70. LABS WERE OBTAINED. ABNORMAL LAB VALUES INCLUDE THE FOLLOWING: WBC 13.2, OTHERWISE, HE IS HEMODYNAMICALLY STABLE. BLOOD AND SPUTUM CULTURES ARE PENDING. TODAYS ABG REVEALS PH 7.450, PC02 52.0, P02 59, HC03 36.1, BASE EXCESS 10.4. A CHEST XRAY WAS OBTAINED TODAY AND IS STABLE. PATIENT REQUIRES HOME OXYGEN DUE TO ACUTE ON CHRONIC RESPIRATORY FAILURE WITH HYPERCAPNIA. TODAY, WE WILL CONTINUE WITH IV ANTIBIOTICS, RESPIATORY TREATMENTS, AND SUPPLEMENTAL OXYGEN. OTHERWISE, WE WILL FOLLOW UP WITH AM LABS, CHEST XRAY, ABG AND CONTINUE TO MONITOR PATIENT. - Past Medical Family Social History Past Med/Fam/Surg Hx: No changes since H&P Allergies: Allergies Penicillins Allergy (Verified 10/29/17 12:46) - Review of Systems ROS: No change since H&P - Vital Signs and I&O's Vital Signs: Temperature 97.3 F Pulse Rate [Right Brachial] 105 Pulse Rate 87 Respiratory Rate 18 Blood Pressure [Right Arm] 116/75 O2 Sat by Pulse Oximetry 90 Intake and Output: Intake & Output 10/30/17 10/31/17 11/01/17 11/02/17 11:59 11:59 11:59 11:59 Intake Total 4110 2270 4600 2815 Output Total 875 2600 Balance 3235 2270 2000 2815 - Physical Exam Oriented: Normal Eyes: Normal Ear: Normal Nose: Normal Respiratory: Generalized, Wheezes, Rhonchi Cardiovascular: Normal : Normal Auscultation: Bowel Sounds: Normal Palpation: Normal Tenderness: Normal Skin: Normal Musculoskeletal: Normal Psychiatric: Normal Mood Description: Calm Affect: Normal Speech Pattern: Clear, Appropriate - Laboratory and Diagnostics Result Diagrams: 11/02/17 05:04 11/02/17 05:04 Labs: 10/29/17 11:35 Sputum - Expectorated Sputum Sputum Culture - Final 10/29/17 11:35 Sputum - Expectorated Sputum - Final 10/29/17 12:15 Blood Blood Culture - Preliminary 10/29/17 12:06 Blood Blood Culture - Preliminary Laboratory WBC 20.1 X10^3/uL (3.6-10.0) H 11/02/17 05:04 RBC 4.93 X10^6/uL (4.7-6.0) 11/02/17 05:04 Hgb 14.9 g/dL (13.5-18.0) 11/02/17 05:04 Hct 43.1 % (42.0-54.0) 11/02/17 05:04 MCV 87.3 fL (80.0-100.0) 11/02/17 05:04 MCH 30.2 pg (27.0-34.0) 11/02/17 05:04 MCHC 34.5 g/dL (33.0-35.0) 11/02/17 05:04 RDW 12.7 % (11.6-16.5) 11/02/17 05:04 Plt Count 253 X10^3/uL (150.0-450.0) 11/02/17 05:04 Plt Count Comment Adequate (ADEQUATE) 11/02/17 05:04 MPV 7.6 fL (7.4-11.0) 11/02/17 05:04 Neut % (Auto) 92.0 % (42.0-75.0) H 11/02/17 05:04 Lymph % (Auto) 4.0 % (21.0-51.0) L 11/02/17 05:04 Maries % (Auto) 3.8 % (0.0-13.0) 11/02/17 05:04 Eos % (Auto) 0.1 % (0.9-2.9) L 11/02/17 05:04 Baso % (Auto) 0.1 % (0.2-1.0) L 11/02/17 05:04 Neut # (Auto) 18.5 x10^3/uL (2.2-4.8) H 11/02/17 05:04 Lymph # (Auto) 0.8 X10^3/uL (1.3-2.9) L 11/02/17 05:04 Maries # (Auto) 0.8 x10^3/uL (0.3-0.8) 11/02/17 05:04 Eos # (Auto) 0.0 x10^3/uL (0.0-0.2) 11/02/17 05:04 Baso # (Auto) 0.0 X10^3/uL (0.0-0.1) 11/02/17 05:04 Absolute Nucleated RBC 0.1 /100WBC 11/02/17 05:04 Total Counted 100 11/02/17 05:04 Neutrophils % (Manual) 85 % (39-76) H 11/02/17 05:04 Band Neutrophils % 5 % (0-10) 11/02/17 05:04 Lymphocytes % (Manual) 6 % (13-43) L 11/02/17 05:04 Monocytes % (Manual) 4 % (4-9) 11/02/17 05:04 Plt Morphology Comment Normal (NORMAL) 11/02/17 05:04 RBC Morphology Normal (NORMAL) 11/02/17 05:04 Sample Site Right brachial 11/02/17 08:58 ABG pH 7.420 (7.35-7.45) 11/02/17 08:58 ABG pCO2 51.0 mmHg (35.0-45.0) H* 11/02/17 08:58 ABG pO2 55.0 mmHg (80.0-100.0) L 11/02/17 08:58 ABG HCO3 33.1 mmol/L (22-26) H* 11/02/17 08:58 ABG O2 Saturation 89.0 % (90-100) L 11/02/17 08:58 ABG Base Excess 7.3 mmol/L (-2.0-2.0) H 11/02/17 08:58 Sotero Test Na 11/02/17 08:58 A-a Gradient 31.0 mmHg 11/02/17 08:58 FiO2 21.000 11/02/17 08:58 Blood Gas Comments Monica well aw 11/02/17 08:58 Sodium 136 mmol/L (136-145) 11/02/17 05:04 Corrected Sodium 138 mmol/L (136-145) 11/02/17 05:04 Potassium 4.3 mmol/L (3.5-5.1) 11/02/17 05:04 Chloride 99 mmol/L (98-107) 11/02/17 05:04 Carbon Dioxide 32.7 mmol/L (21-32) H 11/02/17 05:04 BUN 13 mg/dL (7-18) 11/02/17 05:04 Creatinine 0.80 mg/dL (0.70-1.30) 11/02/17 05:04 Est GFR (MDRD) Af Amer > 60 (>60) 11/02/17 05:04 Est GFR (MDRD) Non-Af > 60 (>60) 11/02/17 05:04 Glucose 201 mg/dL (65-99) H 11/02/17 05:04 Calcium 7.7 mg/dL (8.5-10.1) L 11/02/17 05:04 Corrected Calcium 8.7 mg/dL (8.5-10.1) 11/02/17 05:04 Magnesium 2.1 mg/dL (1.7-2.9) 11/01/17 05:03 Total Bilirubin 0.20 mg/dL (0.2-1.0) 11/02/17 05:04 AST 13 Units/L (15-37) L 11/02/17 05:04 ALT 29 Units/L (12-78) 11/02/17 05:04 Alkaline Phosphatase 65 Units/L (46-116) 11/02/17 05:04 Creatine Kinase 345 Units/L (39-308) H 10/30/17 11:50 CK-MB (CK-2) 4.7 ng/mL (0-4.0) H* 10/30/17 11:50 CK/CKMB % Calc 1.4 % (<4) 10/30/17 11:50 Troponin I < 0.02 ng/mL (0-1.5) 10/30/17 11:50 Total Protein 6.2 g/dL (6.4-8.2) L 11/02/17 05:04 Albumin 2.7 g/dL (3.4-5.0) L 11/02/17 05:04 Globulin 3.5 g/dL (2.5-4.5) 11/02/17 05:04 Albumin/Globulin Ratio 0.8 Ratio (1.1-2.1) L 11/02/17 05:04 Specimen Type Clean catch urine 10/29/17 15:58 Urine Color Yellow (YELLOW) 10/29/17 15:58 Urine Appearance Clear (CLEAR) 10/29/17 15:58 Urine pH 7.0 (5.0 - 8.0) 10/29/17 15:58 Ur Specific Goodell 1.005 (1.000-1.030) 10/29/17 15:58 Urine Protein Negative (NEGATIVE) 10/29/17 15:58 Urine Glucose (UA) Negative (NEGATIVE) 10/29/17 15:58 Urine Ketones Negative (NEGATIVE) 10/29/17 15:58 Urine Occult Blood 1+ (NEGATIVE) 10/29/17 15:58 Urine Nitrite Negative (NEGATIVE) 10/29/17 15:58 Urine Bilirubin Negative (NEGATIVE) 10/29/17 15:58 Urine Urobilinogen Normal (NORMAL) 10/29/17 15:58 Ur Leukocyte Esterase Negative (NEGATIVE) 10/29/17 15:58 Urine RBC 0-2 /HPF (NONE SEEN) 10/29/17 15:58 Urine WBC None seen /HPF (NONE SEEN) 10/29/17 15:58 Ur Squamous Epith Cells Negative /HPF (NEGATIVE) 10/29/17 15:58 Urine Bacteria Negative /HPF (NEGATIVE) 10/29/17 15:58 Ur Culture Indicated? No/not indicated 10/29/17 15:58 - Plan (1) Bronchopneumonia Status: Acute Plan: PNEUMONIA PROTOCOL, RESPIRATORY TREATMENTS, SUPPLEMENTAL OXYGEN, CONTINUE TO MONITOR (2) COPD (chronic obstructive pulmonary disease) Status: Acute Qualifiers: COPD type: unspecified COPD Qualified Code(s): J44.9 - Chronic obstructive pulmonary disease, unspecified Plan: NICLO-DUR 200MG PO BID, RESPIRATORY TREATMENTS, SUPPLEMENTAL OXYGEN, CONTINUE TO MONITOR (3) Respiratory failure with hypoxia and hypercapnia Status: Acute Qualifiers: Chronicity: acute on chronic Qualified Code(s): J96.21 - Acute and chronic respiratory failure with hypoxia; J96.22 - Acute and chronic respiratory failure with hypercapnia; J96.22 - Acute and chronic respiratory failure with hypercapnia; J96.22 - Acute and chronic respiratory failure with hypercapnia Plan: SUPPLEMENTAL OXYGEN, RESPIATORY TREATMENTS, CONTINUE TO MONITOR
[2017-11-02 12:47] VITALS: BP 124/71
== END 2017-11-02 15:00 | disposition home or self-care (01) | DRG 193 ==
LOC: OBSVTOIN 10:46 → MED/SURG 10:46
PROVIDERS: ADMIT Internal Medicine; ATTEND Internal Medicine
DX: J18.0 Bronchopneumonia, unspecified organism (principal); J96.22 Acute and chronic respiratory failure with hypercapnia; J44.9 Chronic obstructive pulmonary disease, unspecified; R51 Headache; R06.02 Shortness of breath; J01.00 Acute maxillary sinusitis, unspecified; I10 Essential (primary) hypertension; M54.9 Dorsalgia, unspecified; M54.2 Cervicalgia
CPT/HCPCS: 36415; 36600; 71045; 71046; 71260; 80053; 81001; 82550; 82553; 82803; 83735; 84132; 84484; 85025; 87040; 87070; 87205; 93005; 94640; 94760; A4222; J1650; J1956; J2920; J7620; J7626

== ENCOUNTER 2018-07-06 09:00 | Inpatient (IN) ==
[2018-07-06 09:13] VITALS: BMI 24.0
--- NOTE | 2018-07-06 09:48 | DR.DIZZY ---
HPI Time seen Time Seen by Provider: 07/06/18 09:27 PCP Primary Care Physician: SADE HERNANDEZ HPI Comment HPI Comment: PAIN IN ANDOMEN DIFUUSE AND NON RADIATING WITH NAUSEA. RIGHT EYE CLOSE AND VISION BLURRY. Complaint Chief Complaint Doctor Comments: DIZZINESS, GENERALIZE WEAKNESS AND ANDOMINAL PAIN. Chief Complaint:: PT C/O > WEAKNESS, < APPETITE , PT C/O FALLING LAST WEEK AND C/O HAVING TROUBLE OPENING HIS RIGHT EYE, PT WAS SEEN BY SADE HERNANDEZ SP FALL AND HE HAD XRAYS OF HIS RIBS, BR PTS STATES " HE HAS BEEN SICK FOR MONTHS" .PT C/O THAT HE THINKS HIS STOMACH HAS SHRUNK" ./.BR Self Treatment fo Chief Complaint: PT DOES APPEAR TO BE VERY WEAK, Source History Provided: Patient Mode of Arrival Mode of Arrival: Ambulatory Timing Onset of Chief Complaint: 06/29/18 PMH PMH Past Medical History: Yes Past Medical History Comment: BACK PAIN, Past Surgical History: Yes Past Surgical History Comment: NECK , BACK SURGERY ..BR Family History History of Family Medical Conditions: No Social History Does patient currently use any type of tobacco product: No Have you used tobacco products in the last 12 months: No Type of Tobacco Use: None Does any household member use tobacco: No Alcohol Use: None Do you use any recreational Drugs:: No Lives With: Family Lives Where: Home infectious screening In the last 2 months have you had wt loss of >10#?: NO Have you had fever, night sweats or hemotysis?: No Have you traveled outside the country in the last 6 months?: No Isolation: Standard PE Vital Signs Vitals: Temperature 97.0 F Pulse Rate 108 Respiratory Rate 20 Blood Pressure [Right Arm] 124/71 Blood Pressure 102/72 O2 Sat by Pulse Oximetry 98 ROR Labs Reviewed Result Diagrams: 07/06/18 09:44 07/06/18 09:44 Laboratory: WBC 12.0 X10^3/uL (3.6-10.0) H 07/06/18 09:44 RBC 5.51 X10^6/uL (4.7-6.0) 07/06/18 09:44 Hgb 16.3 g/dL (13.5-18.0) 07/06/18 09:44 Hct 47.1 % (42.0-54.0) 07/06/18 09:44 MCV 85.5 fL (80.0-100.0) 07/06/18 09:44 MCH 29.5 pg (27.0-34.0) 07/06/18 09:44 MCHC 34.5 g/dL (33.0-35.0) 07/06/18 09:44 RDW 13.5 % (11.6-16.5) 07/06/18 09:44 Plt Count 334 X10^3/uL (150.0-450.0) 07/06/18 09:44 Plt Count Comment Adequate (ADEQUATE) 07/06/18 09:44 MPV 7.4 fL (7.4-11.0) 07/06/18 09:44 Neut % (Auto) 76.2 % (42.0-75.0) H 07/06/18 09:44 Lymph % (Auto) 12.0 % (21.0-51.0) L 07/06/18 09:44 Bullock % (Auto) 9.4 % (0.0-13.0) 07/06/18 09:44 Eos % (Auto) 1.4 % (0.9-2.9) 07/06/18 09:44 Baso % (Auto) 1.0 % (0.2-1.0) 07/06/18 09:44 Neut # (Auto) 9.1 x10^3/uL (2.2-4.8) H 07/06/18 09:44 Lymph # (Auto) 1.4 X10^3/uL (1.3-2.9) 07/06/18 09:44 Bullock # (Auto) 1.1 x10^3/uL (0.3-0.8) H 07/06/18 09:44 Eos # (Auto) 0.2 x10^3/uL (0.0-0.2) 07/06/18 09:44 Baso # (Auto) 0.1 X10^3/uL (0.0-0.1) 07/06/18 09:44 Absolute Nucleated RBC 0.1 /100WBC 07/06/18 09:44 Total Counted 100 07/06/18 09:44 Neutrophils % (Manual) 79 % (39-76) H 07/06/18 09:44 Lymphocytes % (Manual) 14 % (13-43) 07/06/18 09:44 Monocytes % (Manual) 5 % (4-9) 07/06/18 09:44 Eosinophils % (Manual) 2 % (0-6) 07/06/18 09:44 Plt Morphology Comment Normal (NORMAL) 07/06/18 09:44 RBC Morphology Normal (NORMAL) 07/06/18 09:44 Sodium 131 mmol/L (136-145) L 07/06/18 09:44 Corrected Sodium TNP 07/06/18 09:44 Potassium 3.6 mmol/L (3.5-5.1) 07/06/18 09:44 Chloride 95 mmol/L (98-107) L 07/06/18 09:44 Carbon Dioxide 26.1 mmol/L (21-32) 07/06/18 09:44 BUN 7 mg/dL (7-18) 07/06/18 09:44 Creatinine 0.67 mg/dL (0.70-1.30) L 07/06/18 09:44 Est GFR (MDRD) Af Amer > 60 (>60) 07/06/18 09:44 Est GFR (MDRD) Non-Af > 60 (>60) 07/06/18 09:44 Glucose 96 mg/dL (65-99) 07/06/18 09:44 Calcium 9.7 mg/dL (8.5-10.1) 07/06/18 09:44 Corrected Calcium TNP 07/06/18 09:44 Total Bilirubin 0.80 mg/dL (0.2-1.0) 07/06/18 09:44 AST 83 Units/L (15-37) H 07/06/18 09:44 ALT 44 Units/L (12-78) 07/06/18 09:44 Alkaline Phosphatase 295 Units/L (46-116) H 07/06/18 09:44 Creatine Kinase 241 Units/L (39-308) 07/06/18 09:44 CK-MB (CK-2) < 1.0 ng/mL (0-4.0) 07/06/18 09:44 CK/CKMB % Calc 0.4 % (<4) 07/06/18 09:44 Troponin I < 0.02 ng/mL (0-1.5) 07/06/18 09:44 Total Protein 7.5 g/dL (6.4-8.2) 07/06/18 09:44 Albumin 3.5 g/dL (3.4-5.0) 07/06/18 09:44 Globulin 4.0 g/dL (2.5-4.5) 07/06/18 09:44 Albumin/Globulin Ratio 0.9 Ratio (1.1-2.1) L 07/06/18 09:44 Amylase 87 Units/L (25-115) 07/06/18 09:44 Lipase 337 Units/L (73-393) 07/06/18 09:44
[2018-07-06 09:54] LABS: BASOPHILS # (AUTO) 0.1 X10^3/uL (0.0-0.1); EOSINOPHILS # (AUTO) 0.2 x10^3/uL (0.0-0.2); EOSINOPHILS % (AUTO) 1.4 % (0.9-2.9); HEMATOCRIT 47.1 % (42.0-54.0); HEMOGLOBIN 16.3 g/dL (13.5-18.0); LYMPHOCYTES # (AUTO) 1.4 X10^3/uL (1.3-2.9); MEAN CORPUSCULAR HEMOGLOBIN 29.5 pg (27.0-34.0); MEAN CORPUSCULAR HGB CONC 34.5 g/dL (33.0-35.0); MEAN CORPUSCULAR VOLUME 85.5 fL (80.0-100.0); MEAN PLATELET VOLUME 7.4 fL (7.4-11.0); MONOCYTES # (AUTO) 1.1 x10^3/uL (0.3-0.8); MONOCYTES % (AUTO) 9.4 % (0.0-13.0); NEUTROPHILS # (AUTO) 9.1 x10^3/uL (2.2-4.8); NEUTROPHILS % (AUTO) 76.2 % (42.0-75.0); PLATELET COUNT 334 X10^3/uL (150.0-450.0); RED BLOOD COUNT 5.51 X10^6/uL (4.7-6.0); RED CELL DISTRIBUTION WIDTH 13.5 % (11.6-16.5)
[2018-07-06 10:11] LABS: BLOOD UREA NITROGEN 7 mg/dL (7-18); CALCIUM 9.7 mg/dL (8.5-10.1); CARBON DIOXIDE 26.1 mmol/L (21-32); CHLORIDE 95 mmol/L (98-107); CREATININE 0.67 mg/dL (0.70-1.30); SODIUM 131 mmol/L (136-145); TROPONIN I < 0.02 ng/mL (0-1.5); eGFR NON BLACK RACES > 60 (>60)
[2018-07-06 10:15] LABS: ALANINE AMINOTRANSFERASE 44 Units/L (12-78); ALBUMIN 3.5 g/dL (3.4-5.0); ALKALINE PHOSPHATASE 295 Units/L (46-116); AMYLASE 87 Units/L (25-115); ASPARTATE AMINO TRANSFERASE 83 Units/L (15-37); CKMB % 0.4 % (<4); CREATINE KINASE 241 Units/L (39-308); CREATINE KINASE MB < 1.0 ng/mL (0-4.0); LIPASE 337 Units/L (73-393); TOTAL PROTEIN 7.5 g/dL (6.4-8.2)
[2018-07-06 10:25] LABS: PLATELET MORPHOLOGY COMMENT NORMAL (NORMAL)
[2018-07-06] MEDS ORDERED: ZOFRAN INJ 4 MG VIAL ONE ×2 (11:09→15:56)
[2018-07-06] MEDS ORDERED: ZOFRAN INJ 4 MG VIAL IVP ONE ×2 (11:09→16:04)
[2018-07-06] MEDS ORDERED: NS 100 ML IV 100 ML IV ONE (12:06)
--- NOTE | 2018-07-06 12:56 | CT ---
HISTORY: Dizziness, weakness Study: CT brain without contrast Comparison: None Technique: Multiple axial images of the brain were obtained from the skull base to the vertex without administration of IV contrast. Findings: Images demonstrate an approximate 1.4 x 1.6 cm rounded focus within the left cerebellar hemisphere worrisome for mass and adjacent edema. An additional 0.9 x 1.2 cm lesion is seen within the right frontoparietal region and also demonstrates suspected adjacent edema. Both lesions demonstrate increased density peripherally which may reflect hemorrhage. Additional smaller lesions cannot be excluded. Decreased attenuation is also seen within the right cerebellar hemisphere and kristan/brainstem. These latter findings may be artifactual in nature however ischemic change/edema cannot entirely be excluded. Follow-up MRI with and without contrast may be performed for further evaluation. No extra-axial fluid collections are seen. The ventricles, sulci, and cisterns demonstrate an appearance consistent with a mild degree of generalized atrophy. Patchy areas of decreased attenuation within the periventricular, subcortical, and subinsular white matter suggest changes of chronic small vessel ischemic disease. IMPRESSION: 1. Findings suspicious for metastatic disease as discussed above. Report was discussed with Dr. Bey at 12:45 p.m. on July 06, 2018. Reported By:
--- NOTE | 2018-07-06 13:16 | CT ---
HISTORY: Nausea, abdominal pain Study: CT abdomen pelvis with contrast Comparison: None Technique: Axial post-contrast images with coronal and sagittal reformats. Dose reduction procedures were used with mA/kv adjusted for body size. Findings: The right lung base is clear. Partially visualized in the posterior aspect of the left upper lobe is a slightly irregular 1.9 x 1.5 cm nodule highly suspicious for primary lung neoplasm. There appear to be some adjacent satellite nodules. Additionally there is a 3.7 cm nodule in the left lower lobe which could represent a metastatic focus. Additionally there appears to be partially visualized left hilar adenopathy and subcarinal adenopathy. Chest CT is recommended for further evaluation. Examination of the liver demonstrated diffuse involvement with hepatic metastatic disease. The largest lesion appears to be within the left lobe and measures 6.3 by 5.7 cm. The examination of the spleen demonstrated multiple well-marginated lesions of decreased attenuation ranging from sub cm to 1.7 cm in size. These could represent cysts or metastatic lesions. Sonography would be of further diagnostic value. Bilateral adrenal masses are identified measuring 3.7 cm in diameter on the right and 1.85 by 1.8 cm on the left and likely representing metastases. The kidneys are unobstructed and without stones. There are some cysts present bilaterally. Additionally there is a 2.1 cm mass projecting anteriorly off the medial aspect of the right lower renal pole which is not clearly cystic and could represent a metastatic focus or primary renal neoplasm. No ureteral calculi are identified. The appendix is normal. Calcific atherosclerotic changes present in a nondilated abdominal aorta. Para-aortic lymphadenopathy and perihepatic lymphadenopathy is present most likely representing metastatic disease. There are no findings suggestive of diverticulitis or colitis. Examination of the pelvis demonstrated no evidence for pelvic masses, pelvic fluid, or pelvic lymphadenopathy. There is a question of a metastatic focus in the right side of T10. IMPRESSION: 1.9 x 1.5 cm irregular left upper lobe pulmonary nodule suspicious for primary lung neoplasm. Adjacent satellite nodules are present as is a nodule in the left lower lobe suspicious for metastatic disease Left hilar and mediastinal adenopathy likely metastatic in origin Diffuse severe hepatic metastatic disease Bilateral adrenal metastatic disease Extensive para-aortic and perihepatic lymphadenopathy likely metastatic in origin Possible metastatic focus in T10 2 cm not clearly cystic right renal mass which could represent a metastatic focus or primary renal neoplasm Multiple lesions of decreased attenuation in the spleen which could represent cysts or additional metastatic disease sonography may be of further diagnostic value. Reported By:
[2018-07-06] MEDS ORDERED: MORPHINE SULFATE INJ 4 MG ONE (15:56)
[2018-07-06] MEDS ORDERED: MORPHINE SULFATE INJ 4 MG IVP ONE (16:04)
[2018-07-06] MEDS ORDERED: ZOFRAN INJ 4 MG VIAL IVP PRN (16:06)
[2018-07-06] MEDS ORDERED: PATIENT'S HOME MEDICATION (Budesonide-Formoterol 2 PUFF) IN SCH (16:57)
[2018-07-06] MEDS: NS 1000 ML 1,000 ML IV SCH (17:22)
[2018-07-06] MEDS: PROTONIX INJ 40 MG VIAL IVP SCH (17:23)
[2018-07-06] MEDS ORDERED: PREVNAR 13 IM ONE (18:03)
[2018-07-06] MEDS: NORCO 5/325 MG TAB PO PRN (18:34)
[2018-07-06] MEDS ORDERED: RESTORIL CAP 15 MG PO PRN (19:55)
[2018-07-06] MEDS: MORPHINE SULFATE INJ 4 MG IVP PRN (20:38)
[2018-07-06] MEDS: LIPITOR TAB 40 MG PO SCH (20:39)
[2018-07-06] MEDS: COLACE CAP 100 MG PO SCH (20:39)
[2018-07-06] MEDS: DUONEB 0.5 MG/3 MG NEB SCH (20:41)
[2018-07-06] MEDS: PULMICORT NEB TX 0.5 MG NEB SCH (20:41)
[2018-07-06] MEDS: SOLU-Medrol 40 MG VIAL IVP SCH (22:27)
[2018-07-07] MEDS: MORPHINE SULFATE INJ 4 MG IVP PRN ×2 (01:57→08:32)
[2018-07-07] MEDS: SOLU-Medrol 40 MG VIAL IVP SCH (05:18)
[2018-07-07] MEDS: NS 1000 ML 1,000 ML IV SCH (05:19)
[2018-07-07 05:39] LABS: BASOPHILS % (AUTO) 0.2 % (0.2-1.0); HEMATOCRIT 43.4 % (42.0-54.0); HEMOGLOBIN 15.3 g/dL (13.5-18.0); LYMPHOCYTES # (AUTO) 0.4 X10^3/uL (1.3-2.9); LYMPHOCYTES % (AUTO) 4.6 % (21.0-51.0); MEAN CORPUSCULAR HEMOGLOBIN 30.3 pg (27.0-34.0); MEAN CORPUSCULAR HGB CONC 35.3 g/dL (33.0-35.0); MEAN CORPUSCULAR VOLUME 85.7 fL (80.0-100.0); MEAN PLATELET VOLUME 7.8 fL (7.4-11.0); MONOCYTES # (AUTO) 0.2 x10^3/uL (0.3-0.8); MONOCYTES % (AUTO) 2.2 % (0.0-13.0); NEUTROPHILS # (AUTO) 7.9 x10^3/uL (2.2-4.8); PLATELET COUNT 360 X10^3/uL (150.0-450.0); RED BLOOD COUNT 5.07 X10^6/uL (4.7-6.0); RED CELL DISTRIBUTION WIDTH 13.2 % (11.6-16.5); WHITE BLOOD COUNT 8.5 X10^3/uL (3.6-10.0)
[2018-07-07 05:53] LABS: ALANINE AMINOTRANSFERASE 48 Units/L (12-78); ALBUMIN 3.2 g/dL (3.4-5.0); ALKALINE PHOSPHATASE 273 Units/L (46-116); ASPARTATE AMINO TRANSFERASE 72 Units/L (15-37); BLOOD UREA NITROGEN 8 mg/dL (7-18); CARBON DIOXIDE 22.9 mmol/L (21-32); CHLORIDE 93 mmol/L (98-107); COR CA(FOR HYPOALB) 9.6 mg/dL (8.5-10.1); COR NA(FOR HYPERGLY) 130 mmol/L (136-145); CREATININE 0.54 mg/dL (0.70-1.30); SODIUM 129 mmol/L (136-145); TOTAL PROTEIN 7.1 g/dL (6.4-8.2); eGFR NON BLACK RACES > 60 (>60)
[2018-07-07] MEDS ORDERED: MAGNESIUM SULFATE 1 GRAM/100 mL PREMIX 1 GM/100 ML BAG IV PRN (05:59)
[2018-07-07] MEDS ORDERED: K-RIDER 10 MEQ/NS 100 ML 10 MEQ/100 ML BAG IV PRN (05:59)
[2018-07-07] MEDS ORDERED: POTASSIUM CHL 60 MEQ/NS 0.45% 500 ML IV PRN (05:59)
[2018-07-07] MEDS ORDERED: POTASSIUM CHLORIDE LIQ 20 MEQ UDC PO PRN (05:59)
[2018-07-07] MEDS ORDERED: KLOR-CON PO PRN (05:59)
[2018-07-07] MEDS ORDERED: POTASSIUM CHL 40 MEQ/NS 0.45% 500 ML IV PRN (05:59)
[2018-07-07] MEDS ORDERED: MICRO K EXTEN CAP 10 MEQ PO PRN (05:59)
[2018-07-07 06:06] LABS: PLATELET MORPHOLOGY COMMENT NORMAL (NORMAL)
[2018-07-07] MEDS: COLACE CAP 100 MG PO SCH ×2 (08:25→20:37)
[2018-07-07] MEDS: MAXZIDE 37.5/25 MG PO SCH (08:26)
[2018-07-07] MEDS: NORVASC TAB 5 MG PO SCH (08:27)
[2018-07-07] MEDS: PROTONIX INJ 40 MG VIAL IVP SCH ×3 (08:28→20:37)
[2018-07-07] MEDS: DUONEB 0.5 MG/3 MG NEB SCH ×2 (08:45→21:10)
[2018-07-07] MEDS: PULMICORT NEB TX 0.5 MG NEB SCH ×2 (08:45→21:10)
[2018-07-07] MEDS ORDERED: PATIENT'S HOME MEDICATION (Tiotropium Bromide 1 CAP) IN SCH (09:00)
[2018-07-07] MEDS: MORPHINE SULFATE INJ 2 MG INJ IVP PRN ×5 (11:38→20:38)
[2018-07-07] MEDS: DECADRON INJ IV SCH ×2 (12:49→20:31)
[2018-07-07] MEDS: PROVENTIL NEB TX 0.083% 2.5MG/ 3ML NEB PRN ×2 (13:57→17:29)
[2018-07-07] MEDS: PEPCID 20 MG IV PREMIX* 20 MG/50 ML BAG IV SCH ×2 (14:04→20:30)
--- NOTE | 2018-07-07 14:50 | DR.H&P ---
H&P - History & Physical for Day of: H&P Date: 07/06/18 - Chief Complaint Chief Complaint: WEAKNESS, DECREASED APPETITE, FALLS, VISION CHANGES, ABDOMINAL PAIN, BACK PAIN, DIZZINESS - History of Present Illness History of Present Illness: IS A 58 YEAR OLD PATIENT OF OURS WHO PRESENTED TO THE EMERGENCY ROOM WITH COMLAINTS OF INCREASED WEAKNESS, DECREASED APPETITE, FREQUENT FALLS, AND VISION CHANGES. SPOUSE REPORTS THAT PATIENT FELL ABOUT A WEEK AGO. OTHER SYMPTOMS HAVE REPORTEDLY BEEN GOING ON FOR MONTHS, BUT HAVE PROGRESSIVELY GOTTEN WORSE. HE ALSO REPORTS DIZZINESS, BACK PAIN, AND ABDOMINAL PAIN WITH NAUSEA. ON ARRIVAL, VITALS WERE 97.0-108-20-98%-102/71. LABS WERE OBTAINED. ABNORMAL LAB VALUES INCLUDE THE FOLLOWING: WBC 12.0, SODIUM 131, CHLORIDE 95, CREATININE 0.67, AST 83, ALK PHOS 295. EKG REVEALED SINUS TACHYCARDIA. AN ABDOMEN/PELVIS CT WAS OBTAINED AND REVEALED: 1.9 x 1.5 cm irregular left upper lobe pulmonary nodule suspicious for primary lung neoplasm. Adjacent satellite nodules are present as is a nodule in the left lower lobe suspicious for metastatic disease. Left hilar and mediastinal adenopathy likely metastatic in origin. Diffuse severe hepatic metastatic disease. Bilateral adrenal metastatic disease. Extensive para-aortic and perihepatic lymphadenopathy likely metastatic in origin. Possible metastatic focus in T10. 2 cm not clearly cystic right renal mass which could represent a metastatic focus or primary renal neoplasm. Multiple lesions of decreased attenuation in the spleen which could represent cysts or additional metastatic disease sonography may be of further diagnostic value. A BRAIN CT WAS ALSO OBTAINED AND REVELED: 1.4 x 1.6 cm rounded focus within the left cerebellar hemisphere worrisome for mass and adjacent edema. An additional 0.9 x 1.2 cm lesion is seen within the right frontoparietal region and also demonstrates suspected adjacent edema. Both lesions demonstrate increased density peripherally which may reflect hemorrhage. Additional smaller lesions cannot be excluded. Decreased attenuation is also seen within the right cerebellar hemisphere and kristan/brainstem. Findings suspicious for metastatic disease. FINDINGS WERE DISCUSSED IN DETAIL WITH PATIENT AND FAMILY. HE WAS GIVEN ZOFRAN 4MG IV X 2 DOSES AND MORPHINE 4MG IV X 1 DOSE IN THE ER WITH ONLY SLIGHT IMPROVEMENT IN PAIN NOTED. HE WAS ADMITTED FOR FURTHER EVALUATION AND TREATMENT OF METASTATIC CANCER, BRAIN METS WITH EDEMA/BLEED, AND INTRACTABLE PAIN. HE WAS STARTED ON MORPHINE 4MG IV Q4H PRN PAIN, NORCO 5/325MG PO Q4H PRN PAIN, NORMAL SALINE AT KVO, SOLU-MEDROL 40MG IV Q8H, AND HOME MEDICATIONS WERE RESUMED. WE PLAN TO FOLLOW UP WITH AM LABS AND CONTINUE TO MONITOR. - Past Medical History Past Medical History: Dyslipidemia, Hypertension - Past Surgical History Surgical History: Ortho Surgery Additional Surgical History: HERNIA REPAIR - Family History Family Medical History: Diabetes Mellitus - Social History Does patient currently use any type of tobacco product: No Have you used tobacco products in the last 12 months: No Type of Tobacco Use: Cigarettes Does any household member use tobacco: No Alcohol Use: None Drug Use: None - Medications Home Medications: Penicillins Allergy (Verified 07/06/18 09:05) CONTINUE taking the following medications atorvastatin 40 mg PO QHS 07/06/18 [History] cyclobenzaprine 10 mg PO HS PRN 07/06/18 [History] docusate sodium [Stool Softener] 100 mg PO BID 07/06/18 [History] ranitidine HCl 150 mg PO BID 07/06/18 [History] - Review of Systems Constitutional: See HPI, Weakness, Other (DECREASED APPETITE ) Eyes: Vision Change ENT: No Symptoms Reported Respiratory: Shortness of Breath, SOB with Excertion Cardiovascular: No Symptoms Reported Gastrointestinal: Nausea, Vomiting, Abdominal Pain Genitourinary: No Symptoms Reported Musculoskeletal: See HPI, Back Pain Skin: No Symptoms Reported Neurological: See HPI, Weakness, Incoordination - Physical Exam Vital Signs: Temperature 98.4 F Pulse Rate [Left Brachial] 106 Pulse Rate 102 Respiratory Rate 20 Blood Pressure [Left Arm] 121/76 Blood Pressure [Right Arm] 124/71 Blood Pressure 102/72 O2 Sat by Pulse Oximetry 95 Oriented: Normal Eyes: Blurred Vision Ear: Normal Nose: Normal Throat: Normal Respiratory: Diminished Throughout Cardiovascular: Tachycardia. negative: S3, S4, Murmur : Normal Auscultation: Bowel Sounds: Normal Palpation: Normal Tenderness: Diffuse, Mild. negative: Rebound, Guarding, Rigidity Skin: Decreased Turgur Musculoskeletal: Back:Thoracic, Back:Paraspinous Psychiatric: Anxiety Mood Description: Anxious Affect: Anxious Speech Pattern: Clear - Assessment/Plan (1) Metastatic disease Status: Acute (2) Brain metastases Status: Acute Plan: ADMIT, PAIN CONTROL, CONTINUE TO MONITOR (3) Generalized weakness Status: Acute (4) Intractable pain Status: Acute Plan: MORPHINE 4MG IV Q4H PRN, NORCO 5/325 1 TAB Q 4H PRN PAIN, CONTINUE TO MONITOR (5) Decreased appetite Status: Acute Plan: IV HYDRATION, MEGACE 40MG IV BID, CONTINUE TO MONITOR - Allergies Allergies/Adverse Reactions: Allergies Allergy/AdvReac Type Severity Reaction Status Date / Time Penicillins Allergy Verified 07/06/18 09:05
[2018-07-07] MEDS: NORCO 5/325 MG TAB PO PRN (15:45)
[2018-07-07] MEDS: MEGACE PO SCH ×2 (15:56→20:37)
[2018-07-07] MEDS: K-DUR TAB 20 MEQ PO PRN (16:51)
[2018-07-07] MEDS ORDERED: AMBIEN PO PRN (20:28)
[2018-07-07] MEDS: CHECK PATCH XX SCH (20:36)
[2018-07-07] MEDS: LIPITOR TAB 40 MG PO SCH (20:37)
--- NOTE | 2018-07-07 21:49 | PCM.PROG ---
Progress Note - Progress Note for Day of Date of Exam: 07/07/18 - Subjective Subjective: WAS ADMITTED FOR METASTATIC DISEASE, GENERALIZED WEAKNESS, AND INTRACTABLE PAIN. TODAY, HE IS ALERT AND ORIENTED, SITTING UP IN BED ON MORNING ROUNDS. HE REPORTS SEVERE PAIN TO ABDOMEN, BACK, AND HEAD. HE ALSO CONTINUES WITH WEAKNESS AND DECREASED APPETITE. ON EXAMINATION, HEART IS REGULAR IN RATE AND RHYTHM. BILATERAL LUNGS ARE NOTED WITH DIMINISHED LUNG SOUNDS THROUGHOUT. ABDOMEN IS ROUND/DISTENDED WITH NORMAL BOWEL SOUNDS NOTED IN ALL QUADRANTS. HIS VITALS THIS MORNING ARE 97.9-95-20-98%-131/81. LABS WERE OBTAINED. ABNORMAL LAB VALUES INCLUDE THE FOLLOWING: SODIUM 129, CHLORIDE 93, CREATININE 0.54, GLUCOSE 141, AST 72, ALK PHOS 273, ALBUMIN 3.2. WE DISCUSSED TREATMENT OPTIONS WITH PATIENTS FAMILY TODAY. OUR GOALS ARE TODAY ARE TO KEEP PATIENT COMFORTABLE AND GET HIS PAIN UNDER CONTROL. TODAY, WE WILL START FENTANYL 25MCG/HR TD PATCH, DECADRON 4MG IV Q8H, PEPCID IV, PROTONIX IV, MORPHINE 1MG IV Q2H PRN PAIN, AND VERSED 1MG IV Q2H PRN ANXIETY/AGITATION. OTHERWISE, WE WILL FOLLOW UP WITH AM LABS AND CONTINUE TO MONITOR. - Past Medical Family Social History Past Med/Fam/Surg Hx: No changes since H&P Allergies: Allergies Penicillins Allergy (Verified 07/06/18 09:05) - Review of Systems ROS: No change since H&P - Vital Signs and I&O's Vital Signs: Temperature 97.9 F Pulse Rate [Left Brachial] 95 Pulse Rate 74 Respiratory Rate 20 Blood Pressure [Left Arm] 131/81 Blood Pressure [Right Arm] 124/71 Blood Pressure 102/72 O2 Sat by Pulse Oximetry 94 Intake and Output: Intake & Output 07/05/18 07/06/18 07/07/18 07/08/18 11:59 11:59 11:59 11:59 Intake Total 660 / 660 480 / 480 Balance 660 / 660 480 / 480 - Physical Exam Oriented: Normal Eyes: Blurred Vision Ear: Normal Nose: Normal Throat: Normal Respiratory: Diminished Cardiovascular: Normal. negative: S3, S4, Murmur : Normal Auscultation: Bowel Sounds: Normal Palpation: Normal Tenderness: Diffuse, Mild. negative: Rebound, Guarding, Rigidity Skin: Decreased Turgur Musculoskeletal: Back:Thoracic, Back:Paraspinous Psychiatric: Anxiety Mood Description: Anxious Affect: Anxious Speech Pattern: Clear - Laboratory and Diagnostics Result Diagrams: 07/07/18 04:04 07/07/18 04:04 Labs: Laboratory WBC 8.5 X10^3/uL (3.6-10.0) 07/07/18 04:04 RBC 5.07 X10^6/uL (4.7-6.0) 07/07/18 04:04 Hgb 15.3 g/dL (13.5-18.0) 07/07/18 04:04 Hct 43.4 % (42.0-54.0) 07/07/18 04:04 MCV 85.7 fL (80.0-100.0) 07/07/18 04:04 MCH 30.3 pg (27.0-34.0) 07/07/18 04:04 MCHC 35.3 g/dL (33.0-35.0) H 07/07/18 04:04 RDW 13.2 % (11.6-16.5) 07/07/18 04:04 Plt Count 360 X10^3/uL (150.0-450.0) 07/07/18 04:04 Plt Count Comment Adequate (ADEQUATE) 07/07/18 04:04 MPV 7.8 fL (7.4-11.0) 07/07/18 04:04 Neut % (Auto) 93.0 % (42.0-75.0) H 07/07/18 04:04 Lymph % (Auto) 4.6 % (21.0-51.0) L 07/07/18 04:04 [place] % (Auto) 2.2 % (0.0-13.0) 07/07/18 04:04 Eos % (Auto) 0.0 % (0.9-2.9) L 07/07/18 04:04 Baso % (Auto) 0.2 % (0.2-1.0) 07/07/18 04:04 Neut # (Auto) 7.9 x10^3/uL (2.2-4.8) H 07/07/18 04:04 Lymph # (Auto) 0.4 X10^3/uL (1.3-2.9) L 07/07/18 04:04 [place] # (Auto) 0.2 x10^3/uL (0.3-0.8) L 07/07/18 04:04 Eos # (Auto) 0.0 x10^3/uL (0.0-0.2) 07/07/18 04:04 Baso # (Auto) 0.0 X10^3/uL (0.0-0.1) 07/07/18 04:04 Absolute Nucleated RBC 0.3 /100WBC 07/07/18 04:04 Total Counted 100 07/07/18 04:04 Neutrophils % (Manual) 92 % (39-76) H 07/07/18 04:04 Lymphocytes % (Manual) 4 % (13-43) L 07/07/18 04:04 Monocytes % (Manual) 3 % (4-9) L 07/07/18 04:04 Eosinophils % (Manual) 1 % (0-6) 07/07/18 04:04 Plt Morphology Comment Normal (NORMAL) 07/07/18 04:04 RBC Morphology Normal (NORMAL) 07/07/18 04:04 Sodium 129 mmol/L (136-145) L 07/07/18 04:04 Corrected Sodium 130 mmol/L (136-145) L 07/07/18 04:04 Potassium 3.5 mmol/L (3.5-5.1) 07/07/18 04:04 Chloride 93 mmol/L (98-107) L 07/07/18 04:04 Carbon Dioxide 22.9 mmol/L (21-32) 07/07/18 04:04 BUN 8 mg/dL (7-18) 07/07/18 04:04 Creatinine 0.54 mg/dL (0.70-1.30) L 07/07/18 04:04 Est GFR (MDRD) Af Amer > 60 (>60) 07/07/18 04:04 Est GFR (MDRD) Non-Af > 60 (>60) 07/07/18 04:04 Glucose 141 mg/dL (65-99) H 07/07/18 04:04 Calcium 9.0 mg/dL (8.5-10.1) 07/07/18 04:04 Corrected Calcium 9.6 mg/dL (8.5-10.1) 07/07/18 04:04 Magnesium 1.8 mg/dL (1.7-2.9) 07/07/18 04:04 Total Bilirubin 0.70 mg/dL (0.2-1.0) 07/07/18 04:04 AST 72 Units/L (15-37) H 07/07/18 04:04 ALT 48 Units/L (12-78) 07/07/18 04:04 Alkaline Phosphatase 273 Units/L (46-116) H 07/07/18 04:04 Creatine Kinase 241 Units/L (39-308) 07/06/18 09:44 CK-MB (CK-2) < 1.0 ng/mL (0-4.0) 07/06/18 09:44 CK/CKMB % Calc 0.4 % (<4) 07/06/18 09:44 Troponin I < 0.02 ng/mL (0-1.5) 07/06/18 09:44 Total Protein 7.1 g/dL (6.4-8.2) 07/07/18 04:04 Albumin 3.2 g/dL (3.4-5.0) L 07/07/18 04:04 Globulin 3.9 g/dL (2.5-4.5) 07/07/18 04:04 Albumin/Globulin Ratio 0.8 Ratio (1.1-2.1) L 07/07/18 04:04 Amylase 87 Units/L (25-115) 07/06/18 09:44 Lipase 337 Units/L (73-393) 07/06/18 09:44 - Plan (1) Metastatic disease Status: Acute Plan: FENTANYL 25MCG PATCH, MORPHINE 1MG IV Q2H PRN, VERSED 1MG IV Q2H PRN, DECADRON 4MG IV Q8H, CONTINUE TO MONITOR (2) Brain metastases Status: Acute Plan: FENTANYL 25MCG PATCH, MORPHINE 1MG IV Q2H PRN, VERSED 1MG IV Q2H PRN, DECADRON 4MG IV Q8H, CONTINUE TO MONITOR (3) Generalized weakness Status: Acute (4) Intractable pain Status: Acute Plan: FENTANYL 25MCG PATCH, MORPHINE 1MG IV Q2H PRN, VERSED 1MG IV Q2H PRN, NORCO Q4H PRN, DECADRON 4MG IV Q8H, CONTINUE TO MONITOR (5) Decreased appetite Status: Acute Plan: IV HYDRATION, MEGACE 40MG IV BID, CONTINUE TO MONITOR
[2018-07-07] MEDS: VERSED IVP PRN (22:29)
[2018-07-08] MEDS: MORPHINE SULFATE INJ 2 MG INJ IVP PRN ×5 (03:00→09:19)
[2018-07-08] MEDS: NS 1000 ML 1,000 ML IV SCH (03:00)
[2018-07-08] MEDS: DECADRON INJ IV SCH ×3 (03:45→20:40)
[2018-07-08] MEDS: VERSED IVP PRN ×2 (03:46→09:22)
[2018-07-08 05:36] LABS: BASOPHILS % (AUTO) 0.1 % (0.2-1.0); HEMATOCRIT 43.9 % (42.0-54.0); HEMOGLOBIN 15.4 g/dL (13.5-18.0); LYMPHOCYTES # (AUTO) 0.6 X10^3/uL (1.3-2.9); LYMPHOCYTES % (AUTO) 3.5 % (21.0-51.0); MEAN CORPUSCULAR HEMOGLOBIN 29.8 pg (27.0-34.0); MEAN CORPUSCULAR HGB CONC 35.2 g/dL (33.0-35.0); MEAN CORPUSCULAR VOLUME 84.8 fL (80.0-100.0); MEAN PLATELET VOLUME 7.9 fL (7.4-11.0); MONOCYTES # (AUTO) 1.1 x10^3/uL (0.3-0.8); MONOCYTES % (AUTO) 6.5 % (0.0-13.0); NEUTROPHILS # (AUTO) 15.6 x10^3/uL (2.2-4.8); NEUTROPHILS % (AUTO) 89.9 % (42.0-75.0); PLATELET COUNT 323 X10^3/uL (150.0-450.0); RED BLOOD COUNT 5.18 X10^6/uL (4.7-6.0); RED CELL DISTRIBUTION WIDTH 13.8 % (11.6-16.5)
[2018-07-08 05:42] LABS: WHITE BLOOD COUNT 17.3 X10^3/uL (3.6-10.0)
[2018-07-08 05:47] LABS: ALANINE AMINOTRANSFERASE 52 Units/L (12-78); ALBUMIN 3.4 g/dL (3.4-5.0); ALKALINE PHOSPHATASE 285 Units/L (46-116); ASPARTATE AMINO TRANSFERASE 60 Units/L (15-37); BLOOD UREA NITROGEN 7 mg/dL (7-18); CALCIUM 9.2 mg/dL (8.5-10.1); CARBON DIOXIDE 24.2 mmol/L (21-32); CHLORIDE 93 mmol/L (98-107); COR NA(FOR HYPERGLY) 132 mmol/L (136-145); CREATININE 0.59 mg/dL (0.70-1.30); SODIUM 131 mmol/L (136-145); TOTAL PROTEIN 7.1 g/dL (6.4-8.2); eGFR NON BLACK RACES > 60 (>60)
[2018-07-08] MEDS: PEPCID 20 MG IV PREMIX* 20 MG/50 ML BAG IV SCH ×2 (08:26→20:43)
[2018-07-08] MEDS: MAXZIDE 37.5/25 MG PO SCH (08:26)
[2018-07-08] MEDS: NORVASC TAB 5 MG PO SCH (08:26)
[2018-07-08] MEDS: PROTONIX INJ 40 MG VIAL IVP SCH ×2 (08:26→20:40)
[2018-07-08] MEDS: COLACE CAP 100 MG PO SCH ×2 (08:33→20:45)
[2018-07-08] MEDS: DUONEB 0.5 MG/3 MG NEB SCH ×2 (08:56→20:21)
[2018-07-08] MEDS: PULMICORT NEB TX 0.5 MG NEB SCH ×2 (08:56→20:21)
[2018-07-08] MEDS: CHECK PATCH XX SCH ×2 (09:14→20:45)
[2018-07-08] MEDS: MEGACE PO SCH ×2 (09:16→20:45)
[2018-07-08] MEDS: NORCO 5/325 MG TAB PO PRN (09:19)
[2018-07-08] MEDS: FOSINOPRIL 20 MG PO SCH (10:43)
[2018-07-08] MEDS: ROXICODONE TAB 15 MG PO PRN ×3 (10:53→19:18)
[2018-07-08] MEDS: KLONOPIN TAB 0.5 MG PO SCH ×2 (13:01→20:45)
[2018-07-08] MEDS: LIPITOR TAB 40 MG PO SCH (20:45)
[2018-07-08] MEDS ORDERED: FOSINOPRIL 10 MG PO SCH (21:00)
--- NOTE | 2018-07-08 22:03 | PCM.PROG ---
Progress Note - Progress Note for Day of Date of Exam: 07/08/18 - Subjective Subjective: WAS ADMITTED FOR METASTATIC DISEASE, GENERALIZED WEAKNESS, AND INTRACTABLE PAIN. TODAY, HE IS ALERT AND ORIENTED, LYING IN BED ON MORNING ROUNDS. HE CONTINUES TO REPORT SEVERE GENERALIZED PAIN. HE REPORTS THAT PAIN HAS NOT BEEN CONTROLLED THROUGHOUT THE NIGHT. HE ALSO CONTINUES WITH WEAKNESS AND DECREASED APPETITE. ON EXAMINATION, HEART IS REGULAR IN RATE AND RHYTHM. BILATERAL LUNGS ARE NOTED WITH DIMINISHED LUNG SOUNDS THROUGHOUT. ABDOMEN IS ROUND/DISTENDED WITH NORMAL BOWEL SOUNDS NOTED IN ALL QUADRANTS. HIS VITALS THIS MORNING ARE 98.9-88-20-95%-127/93. LABS WERE OBTAINED. ABNORMAL LAB VALUES INCLUDE THE FOLLOWING: WBC 17.3, SODIUM 131, POTASSIUM 3.3, CHLORIDE 93, CREATIN INE 0.59, GLUCOSE 136, AST 60, ALK PHOS 285. FAMILY HAS DECIDED TO TAKE PATIENT HOME ON HOSPICE WHEN HE IS STABLE FOR DISCHARGE. TODAY, WE WILL INCREASE FENTANYL PATCH TO 50MCG/HR TD PATCH, START OXYCONTIN 30MG PO Q4H PRN PAIN, START KLONOPRIN 0.5MG PO BID. WE WILL DISCONTINUE THE MORPHINE AND NORCO. OTHERWISE, WE WILL FOLLOW UP WITH AM LABS AND CONTINUE TO MONITOR. - Past Medical Family Social History Past Med/Fam/Surg Hx: No changes since H&P Allergies: Allergies Penicillins Allergy (Verified 07/06/18 09:05) - Review of Systems ROS: No change since H&P - Vital Signs and I&O's Vital Signs: Temperature 98.2 F Pulse Rate [Left Brachial] 104 Pulse Rate 102 Respiratory Rate 22 Blood Pressure [Left Arm] 128/76 Blood Pressure [Right Arm] 124/71 Blood Pressure 102/72 O2 Sat by Pulse Oximetry 97 Intake and Output: Intake & Output 07/06/18 07/07/18 07/08/18 07/09/18 11:59 11:59 11:59 11:59 Intake Total 660 / 660 1120 / 1120 540 / 540 Balance 660 / 660 1120 / 1120 540 / 540 - Physical Exam Oriented: Normal Eyes: Blurred Vision Ear: Normal Nose: Normal Throat: Normal Respiratory: Diminished Cardiovascular: Normal. negative: S3, S4, Murmur : Normal Auscultation: Bowel Sounds: Normal Palpation: Normal Tenderness: Diffuse, Mild. negative: Rebound, Guarding, Rigidity Skin: Decreased Turgur Musculoskeletal: Back:Thoracic, Back:Paraspinous Psychiatric: Anxiety Mood Description: Anxious Affect: Anxious Speech Pattern: Clear, Appropriate - Laboratory and Diagnostics Result Diagrams: 07/08/18 04:00 07/08/18 11:15 Labs: Laboratory WBC 17.3 X10^3/uL (3.6-10.0) H D 07/08/18 04:00 RBC 5.18 X10^6/uL (4.7-6.0) 07/08/18 04:00 Hgb 15.4 g/dL (13.5-18.0) 07/08/18 04:00 Hct 43.9 % (42.0-54.0) 07/08/18 04:00 MCV 84.8 fL (80.0-100.0) 07/08/18 04:00 MCH 29.8 pg (27.0-34.0) 07/08/18 04:00 MCHC 35.2 g/dL (33.0-35.0) H 07/08/18 04:00 RDW 13.8 % (11.6-16.5) 07/08/18 04:00 Plt Count 323 X10^3/uL (150.0-450.0) 07/08/18 04:00 Plt Count Comment Adequate (ADEQUATE) 07/07/18 04:04 MPV 7.9 fL (7.4-11.0) 07/08/18 04:00 Neut % (Auto) 89.9 % (42.0-75.0) H 07/08/18 04:00 Lymph % (Auto) 3.5 % (21.0-51.0) L 07/08/18 04:00 Real % (Auto) 6.5 % (0.0-13.0) 07/08/18 04:00 Eos % (Auto) 0.0 % (0.9-2.9) L 07/08/18 04:00 Baso % (Auto) 0.1 % (0.2-1.0) L 07/08/18 04:00 Neut # (Auto) 15.6 x10^3/uL (2.2-4.8) H 07/08/18 04:00 Lymph # (Auto) 0.6 X10^3/uL (1.3-2.9) L 07/08/18 04:00 Real # (Auto) 1.1 x10^3/uL (0.3-0.8) H 07/08/18 04:00 Eos # (Auto) 0.0 x10^3/uL (0.0-0.2) 07/08/18 04:00 Baso # (Auto) 0.0 X10^3/uL (0.0-0.1) 07/08/18 04:00 Absolute Nucleated RBC 0.0 /100WBC 07/08/18 04:00 Total Counted 100 07/07/18 04:04 Neutrophils % (Manual) 92 % (39-76) H 07/07/18 04:04 Lymphocytes % (Manual) 4 % (13-43) L 07/07/18 04:04 Monocytes % (Manual) 3 % (4-9) L 07/07/18 04:04 Eosinophils % (Manual) 1 % (0-6) 07/07/18 04:04 Plt Morphology Comment Normal (NORMAL) 07/07/18 04:04 RBC Morphology Normal (NORMAL) 07/07/18 04:04 Sodium 131 mmol/L (136-145) L 07/08/18 04:00 Corrected Sodium 132 mmol/L (136-145) L 07/08/18 04:00 Potassium 4.3 mmol/L (3.5-5.1) 07/08/18 11:15 Chloride 93 mmol/L (98-107) L 07/08/18 04:00 Carbon Dioxide 24.2 mmol/L (21-32) 07/08/18 04:00 BUN 7 mg/dL (7-18) 07/08/18 04:00 Creatinine 0.59 mg/dL (0.70-1.30) L 07/08/18 04:00 Est GFR (MDRD) Af Amer > 60 (>60) 07/08/18 04:00 Est GFR (MDRD) Non-Af > 60 (>60) 07/08/18 04:00 Glucose 136 mg/dL (65-99) H 07/08/18 04:00 Calcium 9.2 mg/dL (8.5-10.1) 07/08/18 04:00 Corrected Calcium TNP 07/08/18 04:00 Magnesium 1.7 mg/dL (1.7-2.9) 07/08/18 04:00 Total Bilirubin 0.50 mg/dL (0.2-1.0) 07/08/18 04:00 AST 60 Units/L (15-37) H 07/08/18 04:00 ALT 52 Units/L (12-78) 07/08/18 04:00 Alkaline Phosphatase 285 Units/L (46-116) H 07/08/18 04:00 Creatine Kinase 241 Units/L (39-308) 07/06/18 09:44 CK-MB (CK-2) < 1.0 ng/mL (0-4.0) 07/06/18 09:44 CK/CKMB % Calc 0.4 % (<4) 07/06/18 09:44 Troponin I < 0.02 ng/mL (0-1.5) 07/06/18 09:44 Total Protein 7.1 g/dL (6.4-8.2) 07/08/18 04:00 Albumin 3.4 g/dL (3.4-5.0) 07/08/18 04:00 Globulin 3.7 g/dL (2.5-4.5) 07/08/18 04:00 Albumin/Globulin Ratio 0.9 Ratio (1.1-2.1) L 07/08/18 04:00 Amylase 87 Units/L (25-115) 07/06/18 09:44 Lipase 337 Units/L (73-393) 07/06/18 09:44 - Plan (1) Metastatic disease Status: Acute Plan: FENTANYL 50MCG PATCH, OXYCONTIN 30MG PO Q4H PRN, VERSED 1MG IV Q2H PRN, DECADRON 4MG IV Q8H, CONTINUE TO MONITOR (2) Brain metastases Status: Acute Plan: FENTANYL 50MCG PATCH, OXYCONTIN 30MG PO Q4H PRN, VERSED 1MG IV Q2H PRN, DECADRON 4MG IV Q8H, CONTINUE TO MONITOR (3) Generalized weakness Status: Acute (4) Intractable pain Status: Acute Plan: FENTANYL 50MCG PATCH, OXYCONTIN 30MG PO Q4H PRN, VERSED 1MG IV Q2H PRN, DECADRON 4MG IV Q8H, CONTINUE TO MONITOR (5) Decreased appetite Status: Acute Plan: IV HYDRATION, MEGACE 40MG IV BID, CONTINUE TO MONITOR
[2018-07-09] MEDS: ROXICODONE TAB 15 MG PO PRN ×3 (01:45→11:19)
[2018-07-09] MEDS ORDERED: MAALOX or MYLANTA PO PRN (02:16)
[2018-07-09] MEDS ORDERED: MAALOX or MYLANTA ONE (02:17)
[2018-07-09] MEDS: DECADRON INJ IV SCH ×2 (03:45→13:04)
[2018-07-09 05:14] LABS: BASOPHILS % (AUTO) 0.2 % (0.2-1.0); HEMATOCRIT 41.2 % (42.0-54.0); LYMPHOCYTES # (AUTO) 0.5 X10^3/uL (1.3-2.9); LYMPHOCYTES % (AUTO) 2.9 % (21.0-51.0); MEAN CORPUSCULAR HEMOGLOBIN 29.4 pg (27.0-34.0); MEAN CORPUSCULAR HGB CONC 34.1 g/dL (33.0-35.0); MEAN CORPUSCULAR VOLUME 86.3 fL (80.0-100.0); MEAN PLATELET VOLUME 7.8 fL (7.4-11.0); MONOCYTES # (AUTO) 1.1 x10^3/uL (0.3-0.8); MONOCYTES % (AUTO) 6.6 % (0.0-13.0); NEUTROPHILS # (AUTO) 15.4 x10^3/uL (2.2-4.8); NEUTROPHILS % (AUTO) 90.3 % (42.0-75.0); PLATELET COUNT 299 X10^3/uL (150.0-450.0); RED BLOOD COUNT 4.78 X10^6/uL (4.7-6.0); RED CELL DISTRIBUTION WIDTH 13.7 % (11.6-16.5); WHITE BLOOD COUNT 17.1 X10^3/uL (3.6-10.0)
[2018-07-09 05:40] LABS: BAND NEUTROPHILS % 0 % (0-10)
[2018-07-09 05:41] LABS: PLATELET MORPHOLOGY COMMENT NORMAL (NORMAL)
[2018-07-09 05:42] LABS: ALANINE AMINOTRANSFERASE 44 Units/L (12-78); ALBUMIN 3.2 g/dL (3.4-5.0); ALKALINE PHOSPHATASE 244 Units/L (46-116); ASPARTATE AMINO TRANSFERASE 58 Units/L (15-37); BLOOD UREA NITROGEN 10 mg/dL (7-18); CALCIUM 9.1 mg/dL (8.5-10.1); CARBON DIOXIDE 24.1 mmol/L (21-32); CHLORIDE 94 mmol/L (98-107); COR CA(FOR HYPOALB) 9.7 mg/dL (8.5-10.1); COR NA(FOR HYPERGLY) 132 mmol/L (136-145); CREATININE 0.67 mg/dL (0.70-1.30); SODIUM 131 mmol/L (136-145); TOTAL PROTEIN 6.6 g/dL (6.4-8.2); eGFR NON BLACK RACES > 60 (>60)
[2018-07-09] MEDS: PULMICORT NEB TX 0.5 MG NEB SCH (08:04)
[2018-07-09] MEDS: DUONEB 0.5 MG/3 MG NEB SCH (08:04)
[2018-07-09] MEDS: KLONOPIN TAB 0.5 MG PO SCH (08:13)
[2018-07-09] MEDS: K-DUR TAB 20 MEQ PO PRN (09:07)
[2018-07-09] MEDS: PEPCID 20 MG IV PREMIX* 20 MG/50 ML BAG IV SCH (09:08)
[2018-07-09] MEDS: NORVASC TAB 5 MG PO SCH (09:09)
[2018-07-09] MEDS: MAXZIDE 37.5/25 MG PO SCH (09:09)
[2018-07-09] MEDS: COLACE CAP 100 MG PO SCH (09:09)
[2018-07-09] MEDS: PROTONIX INJ 40 MG VIAL IVP SCH (09:09)
[2018-07-09] MEDS: MEGACE PO SCH (09:09)
[2018-07-09] MEDS: FOSINOPRIL 20 MG PO SCH (09:10)
[2018-07-09] MEDS: CHECK PATCH XX SCH (09:10)
[2018-07-09 12:45] VITALS: BP 111/68
== END 2018-07-09 13:25 | disposition hospice, home (50) | DRG 948 ==
LOC: ER 09:03 → MED/SURG 09:03 → OBSVTOIN 16:16 → MED/SURG 16:48
PROVIDERS: ADMIT Internal Medicine; ATTEND Internal Medicine
DX: M54.89 Other dorsalgia; R10.84 Generalized abdominal pain; G89.3 Neoplasm related pain (acute) (chronic); R42 Dizziness and giddiness; I10 Essential (primary) hypertension; C79.31 Secondary malignant neoplasm of brain; Z91.81 History of falling; R29.6 Repeated falls; R53.1 Weakness; R63.0 Anorexia; E78.2 Mixed hyperlipidemia; H53.8 Other visual disturbances; R91.8 Other nonspecific abnormal finding of lung field
CPT/HCPCS: 36415; 70450; 74177; 80053; 82150; 82550; 82553; 83690; 83735; 84132; 84484; 85025; 93005; 94640; 94760; 96365; 96374; 96375; 99282; 99284; A4216; A4222; C9113; S0028; S0179; J1100; J2250; J2270; J2405; J2920; J7030; J7050; J7613; J7620; J7626

== ENCOUNTER 2018-07-26 20:08 | Observation (INO) ==
--- NOTE | 2018-07-26 20:28 | DR.GENAD ---
HPI Time Seen Time Seen by Provider: 07/26/18 20:28 PCP Primary Care Physician: SADE HPI Comment HPI Comment: PATIENT IS 58YROLD WHITE MALE WITH METASTATIC CANCER WHO PRESENTS TO ED BEAUSE OF INTRACTABLR GENERALIZE PAIN ESPECIALLY IN HIS ABDOMEN, CHEST AND BACK THAT IS NOT RESPONDING TO MEDICATION AT HOME. HE IS ALSO SOB AND WEAK. HE IS IN HOSPICE CARE. DENIES FEVER. Complaint/Symptoms Chief Complaint Doctors Comments: CHEST PAIN, SOB AND GENERALIZE PAIN. Chief Complaint:: PATIENT BROUGHT IN BY [facility] ON STRETCHER. PATIENT STATES THAT "IM HURTING ALL THE WAY AROUND MY STOMACH AND ALL OVER." PATIENTS AT BEDSIDE STATES THAT PATIENT HAS BEEN ON HOSPICE CARE WITH [facility] FOR CANCER THAT HE GOT TO HURTING REALLY BAD THIS AFTERNOON AND SHE TRIED CALLING THEM BUT COULD NOT GET AHOLD OF ANYBODY. Self Treatment fo Chief Complaint: FENTANYL PATCH 50MG ON BACK Nurses notes reviewed Nurses Notes Review: Yes Source History Provided: Patient Mode of Arrival Mode of Arrival: EMS Timing Onset of Chief Complaint: 07/26/18 Came on: Gradually PMH PMH Past Medical History: Yes Past Medical History: Dyslipidemia and Hypertension Past Medical History Comment: CANCER Past Surgical History: Yes Surgical History: Ortho Surgery Family History History of Family Medical Conditions: Yes Family Medical History: Diabetes Mellitus Social History Do you use any recreational Drugs:: No infectious screening Have you traveled outside the country in the last 6 months?: No PE Vital Signs Vitals: Temperature 97.5 F Pulse Rate [Right Brachial] 87 Pulse Rate 99 Respiratory Rate 16 Blood Pressure [Left Arm] 111/68 Blood Pressure [Right Arm] 123/77 Blood Pressure 116/83 O2 Sat by Pulse Oximetry 95 ROR Labs Reviewed Result Diagrams: 07/27/18 05:37 07/27/18 05:37 Laboratory: WBC 13.7 X10^3/uL (3.6-10.0) H 07/27/18 05:37 RBC 5.35 X10^6/uL (4.7-6.0) 07/27/18 05:37 Hgb 16.0 g/dL (13.5-18.0) 07/27/18 05:37 Hct 46.1 % (42.0-54.0) 07/27/18 05:37 MCV 86.2 fL (80.0-100.0) 07/27/18 05:37 MCH 29.9 pg (27.0-34.0) 07/27/18 05:37 MCHC 34.6 g/dL (33.0-35.0) 07/27/18 05:37 RDW 13.8 % (11.6-16.5) 07/27/18 05:37 Plt Count 203 X10^3/uL (150.0-450.0) 07/27/18 05:37 Plt Count Comment Adequate (ADEQUATE) 07/26/18 21:13 MPV 8.1 fL (7.4-11.0) 07/27/18 05:37 Neut % (Auto) 79.2 % (42.0-75.0) H 07/27/18 05:37 Lymph % (Auto) 9.9 % (21.0-51.0) L 07/27/18 05:37 [place] % (Auto) 8.7 % (0.0-13.0) 07/27/18 05:37 Eos % (Auto) 1.7 % (0.9-2.9) 07/27/18 05:37 Baso % (Auto) 0.5 % (0.2-1.0) 07/27/18 05:37 Neut # (Auto) 10.8 x10^3/uL (2.2-4.8) H 07/27/18 05:37 Lymph # (Auto) 1.4 X10^3/uL (1.3-2.9) 07/27/18 05:37 [place] # (Auto) 1.2 x10^3/uL (0.3-0.8) H 07/27/18 05:37 Eos # (Auto) 0.2 x10^3/uL (0.0-0.2) 07/27/18 05:37 Baso # (Auto) 0.1 X10^3/uL (0.0-0.1) 07/27/18 05:37 Absolute Nucleated RBC 0.0 /100WBC 07/27/18 05:37 Total Counted 100 07/26/18 21:13 Neutrophils % (Manual) 82 % (39-76) H 07/26/18 21:13 Lymphocytes % (Manual) 11 % (13-43) L 07/26/18 21:13 Monocytes % (Manual) 5 % (4-9) 07/26/18 21:13 Eosinophils % (Manual) 2 % (0-6) 07/26/18 21:13 Plt Morphology Comment Normal (NORMAL) 07/26/18 21:13 RBC Morphology Normal (NORMAL) 07/26/18 21:13 Sodium 136 mmol/L (136-145) 07/27/18 05:37 Corrected Sodium TNP 07/27/18 05:37 Potassium 3.8 mmol/L (3.5-5.1) 07/27/18 05:37 Chloride 98 mmol/L (98-107) 07/27/18 05:37 Carbon Dioxide 27.3 mmol/L (21-32) 07/27/18 05:37 BUN 9 mg/dL (7-18) 07/27/18 05:37 Creatinine 0.54 mg/dL (0.70-1.30) L 07/27/18 05:37 Est GFR (MDRD) Af Amer > 60 (>60) 07/27/18 05:37 Est GFR (MDRD) Non-Af > 60 (>60) 07/27/18 05:37 Glucose 86 mg/dL (65-99) 07/27/18 05:37 Calcium 8.9 mg/dL (8.5-10.1) 07/27/18 05:37 Corrected Calcium 9.7 mg/dL (8.5-10.1) 07/27/18 05:37 Total Bilirubin 1.10 mg/dL (0.2-1.0) H 07/27/18 05:37 AST 128 Units/L (15-37) H 07/27/18 05:37 ALT 78 Units/L (12-78) 07/27/18 05:37 Alkaline Phosphatase 380 Units/L (46-116) H 07/27/18 05:37 Total Protein 6.5 g/dL (6.4-8.2) 07/27/18 05:37 Albumin 3.0 g/dL (3.4-5.0) L 07/27/18 05:37 Globulin 3.5 g/dL (2.5-4.5) 07/27/18 05:37 Albumin/Globulin Ratio 0.9 Ratio (1.1-2.1) L 07/27/18 05:37 Specimen Type Random urine 07/27/18 01:17 Urine Color Yellow (YELLOW) 07/27/18 01:17 Urine Appearance Clear (CLEAR) 07/27/18 01:17 Urine pH 6.5 (5.0 - 8.0) 07/27/18 01:17 Ur Specific [place] 1.015 (1.000-1.030) 07/27/18 01:17 Urine Protein 2+ (NEGATIVE) 07/27/18 01:17 Urine Glucose (UA) Negative (NEGATIVE) 07/27/18 01:17 Urine Ketones 2+ (NEGATIVE) 07/27/18 01:17 Urine Occult Blood 1+ (NEGATIVE) 07/27/18 01:17 Urine Nitrite Negative (NEGATIVE) 07/27/18 01:17 Urine Bilirubin 2+ (NEGATIVE) 07/27/18 01:17 Urine Urobilinogen 3+ (NORMAL) 07/27/18 01:17 Ur Leukocyte Esterase Negative (NEGATIVE) 07/27/18 01:17 Urine RBC 0-2 /HPF (NONE SEEN) 07/27/18 01:17 Urine WBC 0-2 /HPF (NONE SEEN) 07/27/18 01:17 Ur Squamous Epith Cells Rare /HPF (NEGATIVE) 07/27/18 01:17 Amorphous Sediment Trace /HPF (NEGATIVE) 07/27/18 01:17 Urine Bacteria Negative /HPF (NEGATIVE) 07/27/18 01:17 Urine Mucus Few /HPF (NEGATIVE) 07/27/18 01:17 Ur Culture Indicated? No/not indicated 07/27/18 01:17
[2018-07-26] MEDS ORDERED: DILAUDID INJ IVP ONE (20:29)
[2018-07-26] MEDS ORDERED: DILAUDID INJ ONE (20:31)
[2018-07-26 21:21] LABS: BASOPHILS % (AUTO) 0.2 % (0.2-1.0); EOSINOPHILS # (AUTO) 0.2 x10^3/uL (0.0-0.2); EOSINOPHILS % (AUTO) 1.3 % (0.9-2.9); HEMATOCRIT 44.1 % (42.0-54.0); HEMOGLOBIN 15.3 g/dL (13.5-18.0); LYMPHOCYTES # (AUTO) 1.4 X10^3/uL (1.3-2.9); LYMPHOCYTES % (AUTO) 9.2 % (21.0-51.0); MEAN CORPUSCULAR HEMOGLOBIN 29.9 pg (27.0-34.0); MEAN CORPUSCULAR HGB CONC 34.6 g/dL (33.0-35.0); MEAN CORPUSCULAR VOLUME 86.5 fL (80.0-100.0); MEAN PLATELET VOLUME 7.7 fL (7.4-11.0); MONOCYTES # (AUTO) 1.2 x10^3/uL (0.3-0.8); MONOCYTES % (AUTO) 7.8 % (0.0-13.0); NEUTROPHILS # (AUTO) 12.3 x10^3/uL (2.2-4.8); NEUTROPHILS % (AUTO) 81.5 % (42.0-75.0); PLATELET COUNT 199 X10^3/uL (150.0-450.0); RED CELL DISTRIBUTION WIDTH 13.8 % (11.6-16.5)
[2018-07-26 21:27] LABS: ALBUMIN 2.8 g/dL (3.4-5.0); CALCIUM 8.6 mg/dL (8.5-10.1); CARBON DIOXIDE 26.7 mmol/L (21-32); CHLORIDE 100 mmol/L (98-107); COR CA(FOR HYPOALB) 9.6 mg/dL (8.5-10.1); CREATININE 0.55 mg/dL (0.70-1.30); SODIUM 134 mmol/L (136-145); eGFR NON BLACK RACES > 60 (>60)
[2018-07-26 21:35] LABS: PLATELET MORPHOLOGY COMMENT NORMAL (NORMAL)
[2018-07-26 21:39] LABS: ALANINE AMINOTRANSFERASE 77 Units/L (12-78); ALKALINE PHOSPHATASE 375 Units/L (46-116); ASPARTATE AMINO TRANSFERASE 110 Units/L (15-37); BLOOD UREA NITROGEN 10 mg/dL (7-18); TOTAL PROTEIN 6.1 g/dL (6.4-8.2)
[2018-07-26] MEDS ORDERED: NS 1000 ML 1,000 ML IV SCH (23:45)
[2018-07-26] MEDS ORDERED: ZOFRAN INJ 4 MG VIAL IVP PRN (23:49)
[2018-07-27] MEDS ORDERED: NS 1000 ML 1,000 ML ONE (00:39)
[2018-07-27] MEDS ORDERED: FLEXERIL TAB 10 MG PO PRN (01:22)
[2018-07-27] MEDS ORDERED: LEVSIN ORAL DROPS PO SCH (01:22)
[2018-07-27 01:27] LABS: BILIRUBIN,URINE 2+ (NEGATIVE); BLOOD/HEMOGLOBIN,URINE 1+ (NEGATIVE); GLUCOSE, URINE NEGATIVE (NEGATIVE); KETONES,URINE 2+ (NEGATIVE); LEUKOCYTE ESTERASE ,URINE NEGATIVE (NEGATIVE); NITRITES,URINE NEGATIVE (NEGATIVE); PH,URINE 6.5 (5.0 - 8.0); PROTEIN,URINE 2+ (NEGATIVE); UROBILINOGEN,URINE 3+ (NORMAL)
[2018-07-27 01:34] LABS: APPEARANCE,URINE CLEAR (CLEAR); COLOR,URINE YELLOW (YELLOW)
[2018-07-27 01:40] VITALS: BMI 20.4
[2018-07-27 01:47] LABS: AMORPHOUS SEDIMENT,UR TRACE /HPF (NEGATIVE); BACTERIA,URINE NEGATIVE /HPF (NEGATIVE); MUCUS,URINE FEW /HPF (NEGATIVE); RBC,URINE 0-2 /HPF (NONE SEEN); SQUAMOUS EPITHELIAL CELL,UR RARE /HPF (NEGATIVE)
[2018-07-27] MEDS ORDERED: DILAUDID INJ ONE (01:56)
[2018-07-27] MEDS: DILAUDID INJ IVP PRN ×2 (01:58→08:17)
[2018-07-27] MEDS: LEVSIN ORAL DROPS PO SCH ×2 (02:37→10:46)
[2018-07-27] MEDS ORDERED: MORPHINE SULFATE INJ 2 MG INJ ONE (04:27)
[2018-07-27] MEDS: MORPHINE SULFATE INJ 2 MG INJ IVP PRN ×2 (04:33→09:03)
[2018-07-27 06:24] LABS: BASOPHILS # (AUTO) 0.1 X10^3/uL (0.0-0.1); BASOPHILS % (AUTO) 0.5 % (0.2-1.0); EOSINOPHILS # (AUTO) 0.2 x10^3/uL (0.0-0.2); EOSINOPHILS % (AUTO) 1.7 % (0.9-2.9); HEMATOCRIT 46.1 % (42.0-54.0); LYMPHOCYTES # (AUTO) 1.4 X10^3/uL (1.3-2.9); LYMPHOCYTES % (AUTO) 9.9 % (21.0-51.0); MEAN CORPUSCULAR HEMOGLOBIN 29.9 pg (27.0-34.0); MEAN CORPUSCULAR HGB CONC 34.6 g/dL (33.0-35.0); MEAN CORPUSCULAR VOLUME 86.2 fL (80.0-100.0); MEAN PLATELET VOLUME 8.1 fL (7.4-11.0); MONOCYTES # (AUTO) 1.2 x10^3/uL (0.3-0.8); MONOCYTES % (AUTO) 8.7 % (0.0-13.0); NEUTROPHILS # (AUTO) 10.8 x10^3/uL (2.2-4.8); NEUTROPHILS % (AUTO) 79.2 % (42.0-75.0); PLATELET COUNT 203 X10^3/uL (150.0-450.0); RED BLOOD COUNT 5.35 X10^6/uL (4.7-6.0); RED CELL DISTRIBUTION WIDTH 13.8 % (11.6-16.5); WHITE BLOOD COUNT 13.7 X10^3/uL (3.6-10.0)
[2018-07-27 07:05] LABS: ALANINE AMINOTRANSFERASE 78 Units/L (12-78); ALKALINE PHOSPHATASE 380 Units/L (46-116); ASPARTATE AMINO TRANSFERASE 128 Units/L (15-37); BLOOD UREA NITROGEN 9 mg/dL (7-18); CALCIUM 8.9 mg/dL (8.5-10.1); CARBON DIOXIDE 27.3 mmol/L (21-32); CHLORIDE 98 mmol/L (98-107); COR CA(FOR HYPOALB) 9.7 mg/dL (8.5-10.1); CREATININE 0.54 mg/dL (0.70-1.30); SODIUM 136 mmol/L (136-145); TOTAL PROTEIN 6.5 g/dL (6.4-8.2); eGFR NON BLACK RACES > 60 (>60)
[2018-07-27] MEDS ORDERED: PREDNISONE TAB 10 MG PO SCH (09:00)
[2018-07-27] MEDS ORDERED: KEPPRA TAB 500 MG PO SCH (09:00)
[2018-07-27] MEDS ORDERED: CHECK PATCH XX SCH (09:00)
[2018-07-27] MEDS ORDERED: COLACE CAP 100 MG PO SCH ×2 (09:00)
[2018-07-27] MEDS ORDERED: ZANTAC PO SCH (09:00)
[2018-07-27] MEDS ORDERED: KLONOPIN TAB 0.5 MG PO SCH (09:00)
[2018-07-27] MEDS ORDERED: MEGACE PO SCH (09:00)
[2018-07-27] MEDS ORDERED: CELEXA PO SCH (09:00)
[2018-07-27] MEDS ORDERED: MAXZIDE 37.5/25 MG PO SCH (09:00)
[2018-07-27] MEDS ORDERED: FOSINOPRIL 20 MG PO SCH (09:00)
[2018-07-27] MEDS ORDERED: PROTONIX TAB 40 MG PO SCH (09:00)
[2018-07-27] MEDS ORDERED: MORPHINE SULFATE PCA 30 MG IVP PRN (09:47)
[2018-07-27] MEDS ORDERED: DURAGESIC 100 mcg/HR PATCH TD SCH (10:00)
[2018-07-27] MEDS ORDERED: SOLU-Medrol 40 MG VIAL IVP SCH (10:00)
[2018-07-27 16:51] VITALS: BP 123/77
[2018-07-27] MEDS ORDERED: FOSINOPRIL 10 MG PO SCH (21:00)
[2018-07-27] MEDS ORDERED: LIPITOR TAB 40 MG PO SCH (21:00)
--- NOTE | 2018-08-10 10:43 | DR.CARTERS ---
Short Stay Summary - Admission Date Date of Admission: 07/26/18 - Discharge Date Discharge Date: 07/27/18 - Admission Diagnoses (1) Intractable pain Status: Acute (2) Metastatic disease Status: Acute - Hospital Course Hospital Course: IS A 58 YEAR OLD PATIENT OF OURS WHO RETURNED TO THE ER WITH COMPLAINTS OF SEVERE GENERALIZED PAIN. PATIENT HAS A HISTORY OF METASTATIC DISEASE AND WAS RECENTLY PLACED UNDER THE CARE OF HOSPICE. ON ARRIVAL, VITALS WERE 98.1-99-20-93%-116/83. ABNORMAL LAB VALUES INCLUDED THE FOLLOWING: WBC 15.0, SODIUM 134, CREATININE 0.55, GLUCOSE 107, AST 110, ALK PHOS 375, TOTAL PROTEIN 6.1, ALBUMIN 2.8. HE WAS ADMITTED FOR INTRACTABLE PAIN DUE TO METASTATIC LUNG CANCER. HE WAS STARTED ON DILAUDID 1MG IV Q6H PRN, MORPHINE 1-2MG IV Q4H PRN, AND HOME MEDICATIONS WERE CONTINUED. ON THE MORNING FOLLOWING ADMISSION, PATIENT CONTINUED WITH SEVERE PAIN. PATIENT AND FAMILY REQUEST THAT HE BE TRANSFERRED TO THE [facility] FOR PALLI[facility]IVE C[facility]. WE INCREASED HIS DURAGESIC PATCH TO 100MCG/HR AND STARTED A MORPHINE DRIP AT 1MG/HR. WE ALSO STARTED SOLU-MEDROL 80MG IV Q8H. WE SPOKE WITH [facility] AND PATIENT WAS ACCEPTED FOR ADMISSION. WE PLANNED FOR DISCHARGE. INSTRUCTIONS FOR MEDICATIONS WERE GIVEN TO PATIENT, FAMILY, AND STAFF AT [facility]. ALL VERBALIZED UNDERSTANDING. HE WAS DISCHARGED VIA EMS IN STABLE CONDITION. - Discharge Medications Discharge Medications: Home Medication List citalopram 40 mg PO DAILY 07/26/18 [History] hyoscyamine sulfate [Hyosyne] 0.25 ml PO Q6H 07/26/18 [History] megestrol 40 mg PO DAILY 07/26/18 [History] pantoprazole [Protonix] 40 mg PO DAILY 07/26/18 [History] promethazine 25 mg PO Q6H 07/26/18 [History] fentanyl 1 patch TRANSDERMAL Q72H #10 ea 07/27/18 [Rx] Prescriptions: Alexey Ibrahim - Discharge Plan Disposition: 51 DISCH TO [facility] Condition: Stable Prescriptions: fentanyl 1 patch TRANSDERMAL Q72H #10 ea - Follow up/Referrals [facility] [Other] - Instructions Additional Instructions: DIET TOLERATED. ACTIVITY TOLERATED.
== END 2018-07-27 18:25 | disposition hospice, inpatient (51) ==
LOC: ER 20:09 → MED/SURG 20:09 → OBS 07-27 10:53 → MED/SURG 07-27 10:55
PROVIDERS: ADMIT Obstetrics & Gynecology Obstetrics; ATTEND Internal Medicine
DX: E78.2 Mixed hyperlipidemia; Z51.5 Encounter for palliative care; D72.828 Other elevated white blood cell count; G89.3 Neoplasm related pain (acute) (chronic); C79.31 Secondary malignant neoplasm of brain; I10 Essential (primary) hypertension
CPT/HCPCS: 36415; 80053; 81001; 85025; 96365; 96367; 96374; 99282; 99284; A4222; S0179; G0378; J1170; J2270; J2271; J2405; J2920; J7030; J7512